=== PATIENT | male | born 1945 | race Caucasian/White ===

== ENCOUNTER 2019-11-01 13:13 | Inpatient (IN) | payer OTHER, BC ==
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
[2019-11-01] MEDS ORDERED: SODIUM CHLORIDE 0.9% 500 ML INFUS.BAG IV ONE (14:52)
[2019-11-01] MEDS ORDERED: morphine CARPU-JECT 4 MG/1 ML DISP.SYRIN IVPUSH ONE ×3 (14:52→21:42)
[2019-11-01] MEDS ORDERED: SODIUM PHOSPHATE/NA BIPHOS 133 ML ENEMA PR ONE (14:56)
[2019-11-01] MEDS ORDERED: morphine SULFATE 4 MG/ML VIAL ONE ×2 (15:26→22:17)
[2019-11-01 15:30] LABS: BASO % 0.6 % (0-2.0); EOS % 2.5 % (0-4.5); HEMATOCRIT 32.2 % (35.4-49); HEMOGLOBIN 10.5 GM/dL (11.7-16.9); LYMPH % 14.3 % (8-40); MCH 32.6 pg (25.7-33.7); MCHC 32.7 g/dl (32.0-35.9); MEAN CELL VOLUME 99.9 fl (80-96); MONO % 12.5 % (3.8-10.2); NEUT % 70.1 % (42.8-82.8); PLATELET COUNT 213 K/MM3 (134-434); RBC 3.22 M/mm3 (4.00-5.60); RDW 14.5 % (11.9-15.9); WHITE BLOOD COUNT 5.4 K/mm3 (4.0-10.0)
[2019-11-01] MEDS ORDERED: morphine CARPU-JECT 2 MG/1 ML DISP.SYRIN IVPUSH ONE (15:52)
[2019-11-01 16:01] LABS: INR 1.02 (0.83-1.09)
--- NOTE | 2019-11-01 16:06 | PDOC ---
Documentation entered by Rose Gallegos SCRIBE, acting as scribe for Gamal Gomez MD. Gamal Gomez MD: This documentation has been prepared by the Rosy savage Brenda, SCRIBE, under my direction and personally reviewed by me in its entirety. I confirm that the documentation accurately reflects all work, treatment, procedures, and medical decision making performed by me. Attending Attestation - Resident Resident Name: Ridge Felix - ED Attending Attestation I have performed the following: I have examined & evaluated the patient, The case was reviewed & discussed with the resident, I agree w/resident's findings & plan, Exceptions are as noted - HPI HPI: 11/01/19 14:44 The patient is a 74 year old male with a significant past medical history of Dementia,CABG, COPD, HTN and HLD who presents to the emergency department presenting with 4 days of constipation and abdominal swelling. The patient denies chest pain, shortness of breath, headache and dizziness. Denies fever, chills, nausea, vomiting, diarrhea. Denies any urinary symptoms. Allergies: NKA Past surgical history: Bypass (2011) Social history: Former smoker PCP: Corinna - Physicial Exam PE: 11/01/19 16:00 Patient is awake and alert, well-nourished, in moderate distress; Normocephalic and atraumatic No cervical spine tenderness, no deformity; CTA no chest wall tenderness, RRR, 2/6 abdomen is soft, distended, nontender, no organomegaly back: no deform, + mild sacral ttp; + Extensive perineal ecchymoses involving the scrotum, penis, thighs bilaterally (right greater than left;) Limited range of motion at the hips is noted due to pain; hip flexors, extensors , are intact and equal bilaterally; fine touch is intact bilaterally to the lower extremities; patient is able to plantar and dorsiflex his feet bilaterally ; patient is able to stand, however is unable to ambulate without assistance due to pain. DTRs are +2 bilaterally - Medical Decision Making 11/01/19 16:05 Patient is 74-year-old male with multiple comorbidities presents with severe pelvic and leg pain status post multiple pelvic fractures diagnosed at [facility] which not effectively controlled by home pain meds. Patient is able to stand but is unable to ambulate without significant assistance. Will obtain CT of lumbosacral spine as well as pelvis to evaluate for retroperitoneal hematoma. Will admit for pain control.
[2019-11-01 16:07] LABS: ALBUMIN 3.3 g/dl (3.4-5.0); BILIRUBIN,TOTAL 1.4 mg/dL (0.2-1); BLOOD UREA NITROGEN 21.2 mg/dL (7-18); CALCIUM 8.7 mg/dL (8.5-10.1); CREATININE 0.8 mg/dL (0.55-1.3); POTASSIUM 4.1 mmol/L (3.5-5.1); TOT PROT 6.6 g/dl (6.4-8.2)
[2019-11-01 16:45] LABS: ANISOCYTOSIS 1+; MACROCYTOSIS 1+
[2019-11-01 16:48] LABS: OVALOCYTE 1+
[2019-11-01 16:49] LABS: PLATELET ESTIMATE ADEQUATE
[2019-11-01] MEDS ORDERED: MORPHINE SULFATE 2 MG/ML VIAL ONE (18:31)
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
[2019-11-02] MEDS ORDERED: ACETAMINOPHEN 325 MG TABLET (FP) PO PRN (00:54)
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
[2019-11-02 01:26] VITALS: BMI 28.8
[2019-11-02 02:51] LABS: PH,URINE 5.5 (5.0-8.0); URINE APPEARANCE CLEAR; URINE BILIRUBIN NEGATIVE (NEGATIVE); URINE COLOR YELLOW; URINE GLUCOSE (UA) NEGATIVE (NEGATIVE); URINE KETONE 1+ (NEGATIVE); URINE LEUK ESTERASE NEGATIVE (NEGATIVE); URINE NITRITE NEGATIVE (NEGATIVE); URINE PROTEIN TRACE (NEGATIVE)
[2019-11-02] MEDS ORDERED: HEPARIN NA (PORCINE) 5,000 UNITS/ML 1ML VIAL SQ SCH (06:00)
[2019-11-02] MEDS: DOCUSATE SODIUM 100 MG CAPSULE (FP) PO SCH ×4 (06:28→21:36)
[2019-11-02] MEDS ORDERED: PATIENT'S OWN MEDICATION (NON-FORMULARY) (Clonazepam [Clonazepam] 1 MG) PO PRN (06:38)
[2019-11-02 09:25] LABS: BASO % 0.6 % (0-2.0); EOS % 1.9 % (0-4.5); HEMATOCRIT 29.3 % (35.4-49); HEMOGLOBIN 9.9 GM/dL (11.7-16.9); LYMPH % 12.1 % (8-40); MCH 33.5 pg (25.7-33.7); MCHC 33.8 g/dl (32.0-35.9); MEAN CELL VOLUME 99.1 fl (80-96); MEAN PLT VOLUME 8.3 fl (7.5-11.1); MONO % 13.9 % (3.8-10.2); NEUT % 71.5 % (42.8-82.8); PLATELET COUNT 206 K/MM3 (134-434); RBC 2.96 M/mm3 (4.00-5.60); RDW 14.2 % (11.9-15.9); RETICULOCYTES 5.66 % (0.5-1.5); WHITE BLOOD COUNT 6.3 K/mm3 (4.0-10.0)
[2019-11-02 10:00] LABS: ALBUMIN 3.3 g/dl (3.4-5.0); BILIRUBIN,TOTAL 1.5 mg/dL (0.2-1); BLOOD UREA NITROGEN 15.6 mg/dL (7-18); CALCIUM 8.6 mg/dL (8.5-10.1); CREATININE 0.7 mg/dL (0.55-1.3); MAGNESIUM 2.1 mg/dL (1.8-2.4); POTASSIUM 3.7 mmol/L (3.5-5.1); TOT PROT 6.3 g/dl (6.4-8.2)
[2019-11-02] MEDS ORDERED: FLUVOXAMINE MALEATE PO SCH (10:00)
[2019-11-02] MEDS ORDERED: ENOXAPARIN NA (PORCINE) 40 MG/0.4 ML DISP.SYRIN SQ SCH (10:00)
[2019-11-02] MEDS ORDERED: PT OWN MED DRAWER 7, Y5N ONE ×2 (10:21→21:40)
[2019-11-02 10:27] LABS: ANISOCYTOSIS 1+; MACROCYTOSIS 1+; PLATELET ESTIMATE NORMAL
[2019-11-02] MEDS: SENNOSIDES 8.6MG TABLET (FP) PO SCH ×2 (10:28→21:36)
[2019-11-02] MEDS: LOSARTAN POTASSIUM 50 MG TABLET (FP) PO SCH (10:39)
[2019-11-02] MEDS: UMECLIDINIUM/VILANTEROL (ANORO) 62.5/25 MCG INHALER IH SCH (10:39)
[2019-11-02] MEDS: oxyCODONE HCL 5 MG TABLET PO PRN ×2 (12:35→21:36)
--- NOTE | 2019-11-02 13:14 | PN ---
Progress Note (short form) - Note Progress Note: ORTHOPEDIC SURGERY PROGRESS NOTE Department of Orthopedic Surgery SUBJECTIVE No acute events overnight. No new complaints currently. Denies chest pain, shortness of breath, or calf pain. No nausea or vomiting. Tolerating oral intake. Pain control improving. PHYSICAL EXAM Constitutional: Alert and able to follow commands. No acute distress, appropriate mood and affect. No tenderness of the cervical or lumbar spine. HEENT: Normocephalic, atraumatic Right Upper Extremity: No tenderness to palpation. Full passive and active ROM, free from pain. M/R/U/MSK/AX motor intact; SILT distally; 2+ radial pulses; Cap refill brisk. Left Upper Extremity: No tenderness to palpation. Full passive and active ROM, free from pain. M/R/U/MSK/AX motor intact; SILT distally; 2+ radial pulses; Cap refill brisk. Right Lower Extremity: Skin warm, dry, and intact; no lesions, rashes or ulcers noted. Ecchymosis right buttock and groin. Ecchymosis over the dorsal aspect of the forefoot. Muscle mass equal and symmetric to contralateral side. No atrophy noted. Tender to palpation at toes and buttock; nontender throughout rest of extremity. No cords or calf tenderness. No significant calf/ankle edema. Full passive ROM, free from pain. Joints stable with no pathologic laxity. EHL/TA/GS motor intact; SILT distally; 2+ DP pulses; Cap refill brisk. Tone and reflexes normal. Left Lower Extremity: Swelling and ecchymosis left ankle. Skin warm, dry, and intact; no lesions, rashes or ulcers noted. Muscle mass equal and symmetric to contralateral side. No atrophy noted. No masses or effusions noted. Tender to palpation at left ankle; nontender throughout rest of extremity. No cords or calf tenderness No significant calf/ankle edema. Full passive and active ROM, free from pain. Joints stable with no pathologic laxity. EHL/TA/GS motor intact; SILT distally; 2+ DP pulses; Cap refill brisk. Tone and reflexes normal. Intake & Output 10/31/19 11/01/19 11/02/19 23:59 23:59 23:59 Other: Voiding Method Urinal Weight 194 lb 195 lb Height 5 ft 9 in 5 ft 9 in Body Mass Index (BMI) 28.6 28.8 Weight Measurement Method Built [facility] Active Medications Generic Name Dose Route Start Last Admin Trade Name Freq PRN Reason Stop Dose Admin Acetaminophen 650 mg 11/02/19 00:54 Tylenol - PO Q6H PRN PAIN LEVEL 1-5 Atorvastatin Calcium 20 mg 11/02/19 22:00 Lipitor - PO HS PAPI Clonazepam 1 mg 11/02/19 07:05 Klonopin - PO TID PRN ANXIETY Docusate Sodium 100 mg 11/02/19 06:00 11/02/19 12:38 Colace - PO 100 mg TID PAPI Administration Enoxaparin Sodium 40 mg 11/02/19 10:00 11/02/19 10:28 Lovenox - SQ 40 mg DAILY PAPI Administration Fluvoxamine Maleate 100 mg 11/02/19 10:00 11/02/19 10:28 Luvox - PO 100 mg BID PAPI Administration Gabapentin 400 mg 11/02/19 18:00 Neurontin - PO DAILY@1800 PAPI Losartan Potassium 50 mg 11/02/19 10:00 11/02/19 10:39 Cozaar - PO 50 mg DAILY PAPI Administration Metoprolol Succinate 50 mg 11/02/19 10:00 11/02/19 10:28 Toprol Xl - PO 50 mg DAILY PAPI Administration Oxycodone HCl 5 mg 11/01/19 22:55 11/02/19 12:35 Roxicodone - PO 5 mg Q6H PRN Administration PAIN LEVEL 6-10 Senna 1 tab 11/02/19 10:00 11/02/19 10:28 Senna - PO 1 tab BID PAPI Administration Umeclidinium/Vilanterol 1 puff 11/02/19 10:00 11/02/19 10:39 Anoro Ellipta 62.5-25 Mcg Inh IH 1 puff DAILY PAPI Administration Vital Signs (last) Temp Pulse Resp BP Pulse Ox 98.5 F 108 H 20 111/72 96 11/02/19 01:15 11/02/19 01:15 11/02/19 01:15 11/02/19 01:15 11/02/19 01:15 Laboratory (coagulation) PT with INR 12.00 SEC (9.7-13.0) 11/01/19 15:20 Laboratory 11/02/19 07:42 11/02/19 07:42 IMAGING Radiographs of the pelvis were personally reviewed. They demonstrate a right sided comminuted superior and inferior pubic ramus fracture. Radiographs of the right foot were personally reviewed. They degenerative changes with no acute fracture, dislocation, or bony lesions. Radiographs of the left ankle were personally reviewed. They show soft tissue swelling with an old fracture deformity of the fibula. There is no acute fracture, dislocation or bony lesions.Questionable proximal fifth metatarsal deformity. ASSESSMENT AND PLAN Elias Merrill is a 74 year old male presenting status post fall 6 days ago with (1) a right sided superior and inferior pubic ramus fracture, (2) left ankle sprain, (3) right forefoot sprain, and (4) subacute vs chronic lumbar vertebral compression fractures. - No surgical intervention at this time. - FU CT Pelvis and Lumbar Spine read. - Right foot, left ankle, and pelvis radiographs were reviewed and the results were discussed with the patient. - Pain control: minimize narcotic use - DVT prophylaxis - Ice/Elevation right foot and left ankle - Appreciate medical management - Decubitus precautions heel/sacrum) - PT/OT; WBAT All questions were answered. Thank you for involving our team in the care of this patient. Will continue to follow the patient with you. Please call us with any questions [phone].
[2019-11-02] MEDS: clonazePAM 0.5 MG TABLET PO PRN ×2 (13:44→21:36)
--- NOTE | 2019-11-02 17:01 | EKG ---
Test Reason : Blood Pressure : / mmHG Vent. Rate : 108 BPM Atrial Rate : 108 BPM P-R Int : 166 ms QRS Dur : 136 ms QT Int : 358 ms P-R-T Axes : 054 044 013 degrees QTc Int : 479 ms SINUS TACHYCARDIA RIGHT BUNDLE BRANCH BLOCK ABNORMAL ECG NO PREVIOUS ECGS AVAILABLE Confirmed by GEORGETTE HOOD MD ([id number]) on 11/02/2019 5:01:37 PM Referred By: Confirmed By:GEORGETTE HOOD MD
[2019-11-02] MEDS: GABAPENTIN 400 MG CAPSULE (FP) PO SCH (18:16)
--- NOTE | 2019-11-02 20:10 | PN ---
Progress Note (short form) - Note Progress Note: SUBJECTIVE: Complains of discolored scrotum. Wants to go home. OBJECTIVE: Afebrile, Hemodynamically Stable. Last Vital Signs Temp Pulse Resp BP Pulse Ox 97.8 F 110 H 22 H 118/64 96 11/02/19 15:54 11/02/19 15:54 11/02/19 15:54 11/02/19 15:54 11/02/19 01:15 HEENT - Atraumatic, normocpehalic. Heart - S1, S2, RRR Lungs - clear to auscultation Abdomen - soft, non-tender. Bowel Sounds normal. - suprapubic ecchymosis, scrotal echymosis, tender + MS - tender over lumbar spine Extremities - edema, LE varicosities. No calf tenderness. Neuro - Tone/Power normal all extremities. Laboratory Results - last 24 hr 11/01/19 11/02/19 11/02/19 07:42 02:30 07:42 WBC 6.3 RBC 2.96 L Hgb 9.9 L Hct 29.3 L MCV 99.1 H MCH 33.5 MCHC 33.8 RDW 14.2 Plt Count 206 MPV 8.3 Absolute Neuts (auto) 4.5 Neutrophils % 71.5 Neutrophils % (Manual) 74.7 Band Neutrophils % 1.0 Lymphocytes % 12.1 Lymphocytes % (Manual) 9.7 D Monocytes % 13.9 H Monocytes % (Manual) 6 Eosinophils % 1.9 Eosinophils % (Manual) 2.9 Basophils % 0.6 Basophils % (Manual) 1.0 Myelocytes % (Man) 4 H D Promyelocytes % (Man) 0 Blast Cells % (Manual) 0 Nucleated RBC % 0 Metamyelocytes 0 D Hypochromia 0 Platelet Estimate Normal Platelet Comment Present Polychromasia 1+ Poikilocytosis 0 Anisocytosis 1+ Microcytosis 1+ Macrocytosis 1+ Retic Count 5.66 H Sodium Potassium Chloride Carbon Dioxide Anion Gap BUN Creatinine Est GFR (CKD-EPI)AfAm Est GFR (CKD-EPI)NonAf POC Glucometer Random Glucose Calcium Magnesium Iron TIBC Iron Saturation Unsaturated IBC Ferritin Total Bilirubin AST ALT Alkaline Phosphatase Total Protein Albumin Vitamin B12 Serum Folate Urine Color Yellow Urine Appearance Clear Urine pH 5.5 Ur Specific [place] 1.019 Urine Protein Trace Urine Glucose (UA) Negative Urine Ketones 1+ H Urine Blood Negative Urine Nitrite Negative Urine Bilirubin Negative Urine Urobilinogen 1.0 Ur Leukocyte Esterase Negative Blood Type O POSITIVE 11/02/19 11/02/19 11/02/19 07:42 07:42 17:25 WBC RBC Hgb Hct MCV MCH MCHC RDW Plt Count MPV Absolute Neuts (auto) Neutrophils % Neutrophils % (Manual) Band Neutrophils % Lymphocytes % Lymphocytes % (Manual) Monocytes % Monocytes % (Manual) Eosinophils % Eosinophils % (Manual) Basophils % Basophils % (Manual) Myelocytes % (Man) Promyelocytes % (Man) Blast Cells % (Manual) Nucleated RBC % Metamyelocytes Hypochromia Platelet Estimate Platelet Comment Polychromasia Poikilocytosis Anisocytosis Microcytosis Macrocytosis Retic Count Sodium 138 Potassium 3.7 Chloride 106 Carbon Dioxide 23 Anion Gap 9 BUN 15.6 Creatinine 0.7 Est GFR (CKD-EPI)AfAm 106.24 Est GFR (CKD-EPI)NonAf 91.67 POC Glucometer 124 Random Glucose 100 Calcium 8.6 Magnesium 2.1 Iron 50 TIBC 350 Iron Saturation 14 L Unsaturated IBC 300 H Ferritin 144.7 Total Bilirubin 1.5 H AST 25 ALT 20 Alkaline Phosphatase 72 Total Protein 6.3 L Albumin 3.3 L Vitamin B12 405 Serum Folate 40 H Urine Color Urine Appearance Urine pH Ur Specific [place] Urine Protein Urine Glucose (UA) Urine Ketones Urine Blood Urine Nitrite Urine Bilirubin Urine Urobilinogen Ur Leukocyte Esterase Blood Type Current Medications Generic Name Dose Route Start Last Admin Trade Name Freq PRN Reason Stop Dose Admin Acetaminophen 650 mg 11/02/19 00:54 Tylenol - PO Q6H PRN PAIN LEVEL 1-5 Atorvastatin Calcium 20 mg 11/02/19 22:00 Lipitor - PO HS PAPI Clonazepam 1 mg 11/02/19 07:05 11/02/19 13:44 Klonopin - PO 1 mg TID PRN Administration ANXIETY Docusate Sodium 100 mg 11/02/19 06:00 11/02/19 14:00 Colace - PO 100 mg TID PAPI Administration Fluvoxamine Maleate 100 mg 11/02/19 10:00 11/02/19 10:28 Luvox - PO 100 mg BID PAPI Administration Gabapentin 400 mg 11/02/19 18:00 11/02/19 18:16 Neurontin - PO 400 mg DAILY@1800 PAPI Administration Losartan Potassium 50 mg 11/02/19 10:00 11/02/19 10:39 Cozaar - PO 50 mg DAILY PAPI Administration Metoprolol Succinate 50 mg 11/02/19 10:00 11/02/19 10:28 Toprol Xl - PO 50 mg DAILY PAPI Administration Oxycodone HCl 5 mg 11/01/19 22:55 11/02/19 12:35 Roxicodone - PO 5 mg Q6H PRN Administration PAIN LEVEL 6-10 Senna 1 tab 11/02/19 10:00 11/02/19 10:28 Senna - PO 1 tab BID PAPI Administration Umeclidinium/Vilanterol 1 puff 11/02/19 10:00 11/02/19 10:39 Anoro Ellipta 62.5-25 Mcg Inh IH 1 puff DAILY PAPI Administration Home Medications Medication Instructions Recorded Fluvoxamine Maleate [Luvox -] 100 mg PO BID 01/02/13 Metoprolol Succinate [Toprol XL -] 50 mg PO DAILY 01/02/13 Losartan Potassium [Cozaar -] 50 mg PO DAILY #0 01/06/13 Atorvastatin Ca [Lipitor] 20 mg PO HS 11/01/19 Clonazepam 1 mg PO TID PRN 11/01/19 Gabapentin 400 mg PO DAILY 11/01/19 Umeclidinium Brm/Vilanterol Tr 1 each IH DAILY 11/01/19 [Anoro Ellipta 62.5-25 Mcg INH] ASSESSMENT/PLAN 74 year old male with a past medical history of CAD s/p IN (s/p CABG 7 years prior), HTN, HLD, COPD, presents with Right hip pain s/p fall [address] Lumbar Spine/Pelvis - comminuted fracture of the R superior/inferior pubic ramus, sugg L1-L2 compression fx, enlarged prostate gland, scoliosis, infrarenal AAA, nonobstructing left renal calculi, nonspecific bladder wall thickening, L adrenal nodule suggestive of adenoma. LE U/S negative for DVT 1. Pubic Rami Fracture sec to Fall, Acute L1/L2 compression fractures, Transverse Process fracture L3, L4 Large associated Hematoma 4cm Ortho recommendations appreciated. Oxycodone PRN for pain PT 2. Scrotal Pain/discoloration/ecchymoses, likely sec to Fall/Pelvic Fracture Scrotal US requested Urology consulted. 3. LE edema, etiology unclear Echo requested. CXR - pending. 4. Constipation - started on Senna and Colace. Will give MOM PRN. 5. COPD - Stable. Continue Anoro. 6. HTN - Continue Losartan, Toprol. 7. HLD - Continue Lipitor. 8. L Adrenal Nodule - for outpatient Endocrinology/Urology follow up 9. Enlarged Prostate, Bladder wall thickening, Renal Calculus - Urology consulted. 10. Infrarenal AAA 4.4cm - Vascular Sx follow up as out-patient. 11. R foot ankle/foot sprain - Ice, Rest, Elevation DVT Px - Lovenox SQ stopped due to Pelvic Hematoma/Genital bruising. Visit type - Emergency Visit Emergency Visit: Yes ED Registration Date: 11/01/19 Care time: The patient presented to the Emergency Department on the above date and was hospitalized for further evaluation of their emergent condition. - New Patient This patient is new to me today: Yes Date on this admission: 11/02/19 - Critical Care Critical Care patient: No - Discharge Referral Referred to [facility] Med P.C.: No
[2019-11-02] MEDS: ATORVASTATIN CA 20 MG TABLET (FP) PO SCH (21:36)
[2019-11-03] MEDS: DOCUSATE SODIUM 100 MG CAPSULE (FP) PO SCH ×3 (05:51→21:31)
[2019-11-03] MEDS: oxyCODONE HCL 5 MG TABLET PO PRN ×2 (07:45→15:15)
[2019-11-03] MEDS: clonazePAM 0.5 MG TABLET PO PRN ×2 (07:46→16:42)
[2019-11-03 08:19] LABS: BASO % 0.7 % (0-2.0); HEMATOCRIT 28.7 % (35.4-49); HEMOGLOBIN 9.7 GM/dL (11.7-16.9); LYMPH % 10.1 % (8-40); MCH 33.3 pg (25.7-33.7); MCHC 33.6 g/dl (32.0-35.9); MONO % 13.8 % (3.8-10.2); NEUT % 73.4 % (42.8-82.8); PLATELET COUNT 220 K/MM3 (134-434); RDW 14.6 % (11.9-15.9); WHITE BLOOD COUNT 5.6 K/mm3 (4.0-10.0)
[2019-11-03] MEDS ORDERED: MAGNESIUM HYDROX 2400MG/30ML ORAL SUSPENSION 30 ML CUP PO PRN (08:32)
[2019-11-03 09:37] LABS: BILIRUBIN,DIRECT 0.4 mg/dL (0.0-0.2)
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
[2019-11-03 10:20] LABS: ANISOCYTOSIS 0; MACROCYTOSIS 0; PLATELET ESTIMATE NORMAL
[2019-11-03] MEDS: SENNOSIDES 8.6MG TABLET (FP) PO SCH ×2 (10:49→21:31)
[2019-11-03] MEDS: LOSARTAN POTASSIUM 50 MG TABLET (FP) PO SCH (10:50)
[2019-11-03] MEDS: UMECLIDINIUM/VILANTEROL (ANORO) 62.5/25 MCG INHALER IH SCH (10:51)
--- NOTE | 2019-11-03 11:19 | PN ---
Progress Note (short form) - Note Progress Note: ORTHOPEDIC SURGERY PROGRESS NOTE Department of Orthopedic Surgery SUBJECTIVE No acute events overnight. No new complaints currently. Denies chest pain, shortness of breath, or calf pain. No nausea or vomiting. Tolerating oral intake. Pain control improving. PHYSICAL EXAM Constitutional: Alert and able to follow commands. No acute distress, appropriate mood and affect. No tenderness of the cervical or lumbar spine. HEENT: Normocephalic, atraumatic Right Upper Extremity: No tenderness to palpation. Full passive and active ROM, free from pain. M/R/U/MSK/AX motor intact; SILT distally; 2+ radial pulses; Cap refill brisk. Left Upper Extremity: No tenderness to palpation. Full passive and active ROM, free from pain. M/R/U/MSK/AX motor intact; SILT distally; 2+ radial pulses; Cap refill brisk. Right Lower Extremity: Skin warm, dry, and intact; no lesions, rashes or ulcers noted. Ecchymosis right buttock and groin. Ecchymosis over the dorsal aspect of the forefoot. Muscle mass equal and symmetric to contralateral side. No atrophy noted. Tender to palpation at toes and buttock; nontender throughout rest of extremity. No cords or calf tenderness. No significant calf/ankle edema. Full passive ROM, free from pain. Joints stable with no pathologic laxity. EHL/TA/GS motor intact; SILT distally; 2+ DP pulses; Cap refill brisk. Tone and reflexes normal. Left Lower Extremity: Swelling and ecchymosis left ankle. Skin warm, dry, and intact; no lesions, rashes or ulcers noted. Muscle mass equal and symmetric to contralateral side. No atrophy noted. No masses or effusions noted. Tender to palpation at left ankle; nontender throughout rest of extremity. No cords or calf tenderness No significant calf/ankle edema. Full passive and active ROM, free from pain. Joints stable with no pathologic laxity. EHL/TA/GS motor intact; SILT distally; 2+ DP pulses; Cap refill brisk. Tone and reflexes normal. Intake & Output 11/01/19 11/02/19 11/03/19 23:59 23:59 23:59 Intake Total 600 250 Output Total 300 Balance 600 -50 Intake: Oral 600 250 Output: Urine 300 Void 300 Other: Voiding Method Bedside Commode Bedside Commode Bowel Movement No Weight 194 lb 195 lb Height 5 ft 9 in 5 ft 9 in Body Mass Index (BMI) 28.6 28.8 Weight Measurement Method Built in [facility] Active Medications Generic Name Dose Route Start Last Admin Trade Name Freq PRN Reason Stop Dose Admin Acetaminophen 650 mg 11/02/19 00:54 Tylenol - PO Q6H PRN PAIN LEVEL 1-5 Atorvastatin Calcium 20 mg 11/02/19 22:00 11/02/19 21:36 Lipitor - PO 20 mg HS PAPI Administration Clonazepam 1 mg 11/02/19 07:05 11/03/19 07:46 Klonopin - PO 1 mg TID PRN Administration ANXIETY Docusate Sodium 100 mg 11/02/19 06:00 11/03/19 05:51 Colace - PO 100 mg TID PAPI Administration Fluvoxamine Maleate 100 mg 11/02/19 10:00 11/03/19 10:50 Luvox - PO 100 mg BID PAPI Administration Gabapentin 400 mg 11/02/19 18:00 11/02/19 18:16 Neurontin - PO 400 mg DAILY@1800 PPAI Administration Losartan Potassium 50 mg 11/02/19 10:00 11/03/19 10:50 Cozaar - PO 50 mg DAILY PAPI Administration Magnesium Hydroxide 30 ml 11/03/19 08:32 Milk Of Magnesia - PO DAILY PRN CONSTIPATION Metoprolol Succinate 50 mg 11/02/19 10:00 11/03/19 10:50 Toprol Xl - PO 50 mg DAILY PAPI Administration Oxycodone HCl 5 mg 11/01/19 22:55 11/03/19 07:45 Roxicodone - PO 5 mg Q6H PRN Administration PAIN LEVEL 6-10 Senna 1 tab 11/02/19 10:00 11/03/19 10:49 Senna - PO 1 tab BID PAPI Administration Umeclidinium/Vilanterol 1 puff 11/02/19 10:00 11/03/19 10:51 Anoro Ellipta 62.5-25 Mcg Inh IH 1 puff DAILY PAPI Administration Vital Signs (last) Temp Pulse Resp BP Pulse Ox 98.0 F 80 17 135/71 96 11/03/19 10:20 11/03/19 10:20 11/03/19 10:20 11/03/19 10:20 11/02/19 21:00 Laboratory (coagulation) PT with INR 12.00 SEC (9.7-13.0) 11/01/19 15:20 Laboratory 11/03/19 06:37 11/02/19 07:[address] scan of the pelvis and lumbasr spine were reviewed. They demonstrate a right sided comminuted superior and inferior pubic ramus fracture, acute L1 and L2 vertebral compression fractures, and anondisplaced fractures of the right transverse process of L3 and L4. ASSESSMENT AND PLAN Elias Merrill is a 74 year old male with (1) a right sided superior and inferior pubic ramus fracture, (2) left ankle sprain, (3) right forefoot sprain , and (4) acute L1 and L2 vertebral compression fractures, and L4 and L5 nondisplaced transverse process fractures. He is hemodynamicaly stable and neurologically intact. - No surgical intervention for pelvis/sacral fractures - Monitor H/H - TLSO - Pain control: minimize narcotic use - DVT prophylaxis - Ice/Elevation right foot and left ankle - Appreciate medical management - Decubitus precautions heel/sacrum) - PT/OT; WBAT All questions were answered. Thank you for involving our team in the care of this patient. Will continue to follow the patient with you. Please call us with any questions [phone].
--- NOTE | 2019-11-03 11:36 | ECHO ---
Name: HOWIE MELENDEZ Exam:Adult Echocardiogram Study Date: 11/03/2019 09:44 AM Age: 74 yrs Height: 69 in Weight: 194 lb BSA: 2.0 m2 MMode/2D Measurements & Calculations IVSd: 1.2 cm Ao root diam: 3.8 cm LVIDd: 6.0 cm LA dimension: 4.7 cm LVIDs: 4.6 cm ACS: 1.9 cm LVPWd: 1.3 cm EDV(Teich): 179.5 ml LVOT diam: 1.9 cm ESV(Teich): 98.5 ml Doppler Measurements & Calculations MV E max radha: 79.0 cm/sec MR max radha: 421.3 cm/sec MV A max radha: 45.9 cm/sec MR max P.0 mmHg MV E/A: 1.7 MV dec time: 0.20 sec TR max radha: 208.2 cm/sec PA V2 max: 52.3 cm/sec TR max P.1 mmHg PA max P.1 mmHg Procedure A complete two-dimensional transthoracic echocardiogram was performed (2D, M-mode, Doppler and color flow Doppler). Technically limited study. Left Ventricle The left ventricle is normal in size. Regional wall motion could not be accurately assessed due to po or acoustic window. Right Ventricle The right ventricle is not well visualized. Atria The left atrial size is normal. Right atrial size is normal. Mitral Valve The mitral valve is normal in structure and function. There is no mitral regurgitation noted. Tricuspid Valve The tricuspid valve is normal in structure and function. There is mild tricuspid regurgitation. Right ventricular systolic pressure is normal. Aortic Valve There is mild aortic sclerosis.;. No aortic regurgitation is present. Pulmonic Valve The pulmonic valve is not well visualized. Great Vessels Borderline aortic root dilatation. Pericardium/Pleura There is no pericardial effusion. Interpretation Summary Technically limited study The left ventricle is normal in size. Regional wall motion could not be accurately assessed due to poor acoustic window The right ventricle is not well visualized. The left atrial size is normal. Right atrial size is normal. There is mild tricuspid regurgitation. Right ventricular systolic pressure is normal. There is mild aortic sclerosis. Borderline aortic root dilatation. There is no pericardial effusion. Sander Freed MD 11/03/2019 11:35 AM
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
--- NOTE | 2019-11-03 14:34 | PN ---
Teaching Attending Note Name of Resident: Hilton Rios ATTENDING PHYSICIAN STATEMENT I saw and evaluated the patient. I reviewed the resident's note and discussed the case with the resident. I agree with the resident's findings and plan as documented. SUBJECTIVE: No complaints. Being obstructive, obstinate, and generally cantankerous OBJECTIVE: Afebrile, Hemodynamically Stable. Last Vital Signs Temp Pulse Resp BP Pulse Ox 98.0 F 80 17 135/71 96 11/03/19 10:20 11/03/19 10:20 11/03/19 10:20 11/03/19 10:11/02/19 21:00 Heart - S1, S2, RRR Lungs - clear to auscultation Abdomen - soft, non-tender. Bowel Sounds normal. - suprapubic ecchymosis, scrotal ecchymosis, tender + MS - tender over lumbar spine Extremities - edema, LE varicosities. No calf tenderness. Neuro - Tone/Power normal all extremities. Laboratory Results - last 24 hr 11/01/19 11/02/19 11/03/19 15:20 17:25 06:37 WBC 5.6 RBC 2.90 L Hgb 9.7 L Hct 28.7 L MCV 99.0 H MCH 33.3 MCHC 33.6 RDW 14.6 Plt Count 220 MPV 8.0 Absolute Neuts (auto) 4.1 Neutrophils % 73.4 Neutrophils % (Manual) 81.0 Band Neutrophils % 0.0 Lymphocytes % 10.1 Lymphocytes % (Manual) 4.0 L D Monocytes % 13.8 H Monocytes % (Manual) 8 Eosinophils % 2.0 Eosinophils % (Manual) 3.0 Basophils % 0.7 Basophils % (Manual) 1.0 Myelocytes % (Man) 2 D Promyelocytes % (Man) 0 Blast Cells % (Manual) 0 Nucleated RBC % 0 Metamyelocytes 1 D Hypochromia 0 Platelet Estimate Normal Platelet Comment Present Polychromasia 2+ Poikilocytosis 0 Basophilic Stippling 0 Anisocytosis 0 Microcytosis 0 Macrocytosis 0 Sodium 140 Potassium 4.1 Chloride 103 Carbon Dioxide 27 Anion Gap 10 BUN 21.2 H Creatinine 0.8 Est GFR (CKD-EPI)AfAm 100.57 Est GFR (CKD-EPI)NonAf 86.77 POC Glucometer 124 Random Glucose 92 Calcium 8.7 Total Bilirubin 1.4 H Direct Bilirubin 0.4 H AST 27 ALT 22 Alkaline Phosphatase 81 Total Protein 6.6 Albumin 3.3 L Current Medications Generic Name Dose Route Start Last Admin Trade Name Freq PRN Reason Stop Dose Admin Acetaminophen 650 mg 11/02/19 00:54 Tylenol - PO Q6H PRN PAIN LEVEL 1-5 Atorvastatin Calcium 20 mg 11/02/19 22:00 11/02/19 21:36 Lipitor - PO 20 mg HS PAPI Administration Clonazepam 1 mg 11/02/19 07:05 11/03/19 07:46 Klonopin - PO 1 mg TID PRN Administration ANXIETY Docusate Sodium 100 mg 11/02/19 06:00 11/03/19 13:35 Colace - PO 100 mg TID PAPI Administration Fluvoxamine Maleate 100 mg 11/02/19 10:00 11/03/19 10:50 Luvox - PO 100 mg BID PAPI Administration Gabapentin 400 mg 11/02/19 18:00 11/02/19 18:16 Neurontin - PO 400 mg DAILY@1800 PAPI Administration Losartan Potassium 50 mg 11/02/19 10:00 11/03/19 10:50 Cozaar - PO 50 mg DAILY PAPI Administration Magnesium Hydroxide 30 ml 11/03/19 08:32 Milk Of Magnesia - PO DAILY PRN CONSTIPATION Metoprolol Succinate 50 mg 11/02/19 10:00 11/03/19 10:50 Toprol Xl - PO 50 mg DAILY PAPI Administration Oxycodone HCl 5 mg 11/01/19 22:55 11/03/19 07:45 Roxicodone - PO 5 mg Q6H PRN Administration PAIN LEVEL 6-10 Senna 1 tab 11/02/19 10:00 11/03/19 10:49 Senna - PO 1 tab BID PAPI Administration Umeclidinium/Vilanterol 1 puff 11/02/19 10:00 11/03/19 10:51 Anoro Ellipta 62.5-25 Mcg Inh IH 1 puff DAILY PAPI Administration Home Medications Medication Instructions Recorded Fluvoxamine Maleate [Luvox -] 100 mg PO BID 01/02/13 Metoprolol Succinate [Toprol XL -] 50 mg PO DAILY 01/02/13 Losartan Potassium [Cozaar -] 50 mg PO DAILY #0 01/06/13 Atorvastatin Ca [Lipitor] 20 mg PO HS 11/01/19 Clonazepam 1 mg PO TID PRN 11/01/19 Gabapentin 400 mg PO DAILY 11/01/19 Umeclidinium Brm/Vilanterol Tr 1 each IH DAILY 11/01/19 [Anoro Ellipta 62.5-25 Mcg INH] ASSESSMENT/PLAN 74 year old male with a past medical history of CAD s/p [place] (s/p CABG 7 years prior), HTN, HLD, COPD, presents with Right hip pain s/p fall [address] Lumbar Spine/Pelvis - comminuted fracture of the R superior/inferior pubic ramus, sugg L1-L2 compression fx, enlarged prostate gland, scoliosis, infrarenal AAA, nonobstructing left renal calculi, nonspecific bladder wall thickening, L adrenal nodule suggestive of adenoma. LE U/S negative for DVT 1. Pubic Rami Fracture sec to Fall, Acute L1/L2 compression fractures, Transverse Process fracture L3, L4 Large associated Hematoma 4cm Ortho recommendations appreciated. Oxycodone PRN for pain PT - unable to ambulate due to pain, took 2 steps. Refusing SNF. Wants to leave AMA. Attempting to contact family and mediate a reasonable discharge plan. Psychiatry consulted for medical decision making capacity. 2. Scrotal Pain/discoloration/ecchymoses, likely sec to Fall/Pelvic Fracture Scrotal US negative for testicular pathology. Urology consult appreciated. 3. LE edema, likely chronic venous stasis Echo - normal. 4. Constipation - started on Senna and Colace. MOM PRN. 5. COPD - Stable. Continue Anoro Ellipta 6. HTN - Continue Losartan, Toprol. 7. HLD - Continue Lipitor. 8. L Adrenal Nodule - for outpatient Endocrinology/Urology follow up 9. Enlarged Prostate, Bladder wall thickening, Renal Calculus - Urology consulted. Renal/Bladder US requested by Urology. 10. Infrarenal AAA 4.4cm - Vascular Sx consulted. 11. R foot ankle/foot sprain - Ice, Rest, Elevation. Eval by Ortho - for follow up. 12. Hx of Alcohol Excess - displaying signs of agitation. No overt withdrawal symptoms. No hallucinations. Addiction Medicine consulted. MVI, Thiamine, Folate 13. Unclear Psych history - on Fluvoxamine and Clonazepam, will continue. Psych eval requested. DVT Px - Lovenox SQ stopped due to Pelvic Hematoma/Genital bruising.
[2019-11-03] MEDS: MULTIVITAMINS (DAILY MVI) TABLET (FP) PO SCH (15:15)
[2019-11-03] MEDS: FOLIC ACID 1 MG TABLET (FP) PO SCH (15:15)
[2019-11-03] MEDS: THIAMINE HCL 100 MG TABLET (FP) PO SCH (15:15)
--- NOTE | 2019-11-03 16:10 | PN ---
Physical Exam: SUBJECTIVE: Patient seen and examined at the bedside. Patient was adamant about leaving and going home. Patient refusing to answer any further questions. OBJECTIVE: Vital Signs Period Temp Pulse Resp BP Sys/Nichols Pulse Ox Last 24 Hr 97.8 F-98.4 F 80-86 17-22 108-135/65-71 96-96 GENERAL: Awake, alert, and oriented to self and location. Very hostile towards examiner. EYES: Extraocular movements intact. EARS, NOSE, THROAT: Moist mucous membranes. LUNGS: Breath sounds equal, and diminished. No wheezes and no crackles. No accessory muscle use. HEART: Regular rate and rhythm, normal S1 and S2 without murmur, rub. ABDOMEN: Soft, nontender, not distended, normoactive bowel sounds, no guarding, no rebound, no masses. MUSCULOSKELETAL: Decreased range of motion secondary to pain in the lower extremities. LOWER EXTREMITIES: 2+ pulses, warm, well-perfused. No calf tenderness. Swelling of the left ankle. NEUROLOGICAL: Cranial nerves II-XII intact. 5/5 muscle strength bilaterally upper extremities. 4/5 bilaterally lower extremities. PSYCHIATRIC: Uncooperative and hostile. SKIN: Noted swelling and ecchymoses on the left and right ankles. Laboratory Results - last 24 hr 11/01/19 11/02/19 11/03/19 15:20 17:25 06:37 WBC 5.6 RBC 2.90 L Hgb 9.7 L Hct 28.7 L MCV 99.0 H MCH 33.3 MCHC 33.6 RDW 14.6 Plt Count 220 MPV 8.0 Absolute Neuts (auto) 4.1 Neutrophils % 73.4 Neutrophils % (Manual) 81.0 Band Neutrophils % 0.0 Lymphocytes % 10.1 Lymphocytes % (Manual) 4.0 L D Monocytes % 13.8 H Monocytes % (Manual) 8 Eosinophils % 2.0 Eosinophils % (Manual) 3.0 Basophils % 0.7 Basophils % (Manual) 1.0 Myelocytes % (Man) 2 D Promyelocytes % (Man) 0 Blast Cells % (Manual) 0 Nucleated RBC % 0 Metamyelocytes 1 D Hypochromia 0 Platelet Estimate Normal Platelet Comment Present Polychromasia 2+ Poikilocytosis 0 Basophilic Stippling 0 Anisocytosis 0 Microcytosis 0 Macrocytosis 0 Sodium 140 Potassium 4.1 Chloride 103 Carbon Dioxide 27 Anion Gap 10 BUN 21.2 H Creatinine 0.8 Est GFR (CKD-EPI)AfAm 100.57 Est GFR (CKD-EPI)NonAf 86.77 POC Glucometer 124 Random Glucose 92 Calcium 8.7 Total Bilirubin 1.4 H Direct Bilirubin 0.4 H AST 27 ALT 22 Alkaline Phosphatase 81 Total Protein 6.6 Albumin 3.3 L Active Medications Generic Name Dose Route Start Last Admin Trade Name Freq PRN Reason Stop Dose Admin Acetaminophen 650 mg 11/02/19 00:54 Tylenol - PO Q6H PRN PAIN LEVEL 1-5 Atorvastatin Calcium 20 mg 11/02/19 22:00 11/02/19 21:36 Lipitor - PO 20 mg HS PAPI Administration Clonazepam 1 mg 11/02/19 07:05 11/03/19 07:46 Klonopin - PO 1 mg TID PRN Administration ANXIETY Docusate Sodium 100 mg 11/02/19 06:00 11/03/19 13:35 Colace - PO 100 mg TID PAPI Administration Fluvoxamine Maleate 100 mg 11/02/19 10:00 11/03/19 10:50 Luvox - PO 100 mg BID PAPI Administration Folic Acid 1 mg 11/03/19 15:15 11/03/19 15:15 Folic Acid - PO 1 mg DAILY PAPI Administration Gabapentin 400 mg 11/02/19 18:00 11/02/19 18:16 Neurontin - PO 400 mg DAILY@1800 PAPI Administration Losartan Potassium 50 mg 11/02/19 10:00 11/03/19 10:50 Cozaar - PO 50 mg DAILY PAPI Administration Magnesium Hydroxide 30 ml 11/03/19 08:32 Milk Of Magnesia - PO DAILY PRN CONSTIPATION Metoprolol Succinate 50 mg 11/02/19 10:00 11/03/19 10:50 Toprol Xl - PO 50 mg DAILY PAPI Administration Multivitamins/Minerals/Vitamin C 1 tab 11/03/19 15:15 11/03/19 15:15 Tab-A-Vit - PO 1 tab DAILY PAPI Administration Oxycodone HCl 5 mg 11/01/19 22:55 11/03/19 15:15 Roxicodone - PO 5 mg Q6H PRN Administration PAIN LEVEL 6-10 Senna 1 tab 11/02/19 10:00 11/03/19 10:49 Senna - PO 1 tab BID PAPI Administration Thiamine HCl 100 mg 11/03/19 15:15 11/03/19 15:15 Vitamin B1 - PO 100 mg DAILY PAPI Administration Umeclidinium/Vilanterol 1 puff 11/02/19 10:00 11/03/19 10:51 Anoro Ellipta 62.5-25 Mcg Inh IH 1 puff DAILY PAPI Administration ASSESSMENT/PLAN: Elias Merrill is a 74 year old male with a past medical history of [place] (s/p CABG 7 years prior), HTN, HLD, COPD admitted for pubic fractures. Pubic Rami Fracture - noted hematoma on CT scan - Ortho consulted, recs appreciated - oxycodone 5mg q6h prn and tylenol prn for pain - continue home gabapentin - physical therapy noting that patient unable to walk well and will benefit from subacute rehab - foot and ankle x-ray with no acute fracture - ice and elevation of limbs - UA negative Compression fractures of L1/L2 and transverse fracture of L3/L4 - neurosurgery consulted, recs appreciated - TLSO brace - will require 2 weeks interval x-rays - will need outpatient neurosurgery follow up Edema - likely cardiac in nature and dependent edema contributory from fracture - echo limited, noting normal LV size, mild tricuspid regurg, borderline aortic root dilation - CXR with no acute pathology Scrotal Edema - scrotal U/S negative for pathology - urology consulted - scrotal elevation and ice packs as per urology - pelvic and renal U/S, results pending Constipation - fleet enema given - started on senna and colace Anemia - attempt to get records for [facility] and [facility] to assess if anemia is worsening since those admissions - iron studies - continue to monitor COPD - continue home Anoro HTN - continue home losartan, toprol HLD - continue home Lipitor CT scan noting enlarged prostate gland, nonobstructing calculus, L adrenal nodule - will require outpatient urology follow up - will require endocrinology follow up Infrarenal AAA - obtain abd U/S - will likely need outpatient vascular follow up ?Psychiatric Diagnosis - hx of alcohol abuse - on Luvox and clonazepam - as per son, patient overuses his clonazepam - will need records to find out psychiatric diagnosis - addiction medicine consulted DVT PPx - Lovenox 40 units subq daily FEN - no standing fluids, encourage PO intake - continue to monitor electrolyte and replete as necessary - sodium/fat controlled diet Dispo - continue to monitor on Med-surg - family to speak with social work to negotiate a reasonable and safe discharge plan Problem List - Problems (1) Constipation Code(s): K59.00 - CONSTIPATION, UNSPECIFIED Qualifiers: Constipation type: unspecified constipation type Qualified Code(s): K59.00 - Constipation, unspecified (2) Pelvic fracture Code(s): S32.9XXA - FRACTURE OF UNSP PARTS OF LUMBOSACRAL SPINE AND PELVIS, INIT Qualifiers: Encounter type: subsequent encounter Pelvic bone location: unspecified part of pelvis Fracture type: closed Fracture alignment: nondisplaced Fracture healing: with routine healing Qualified Code(s): S32.9XXD - Fracture of unspecified parts of lumbosacral spine and pelvis, subsequent encounter for fracture with routine healing Visit type - Emergency Visit Emergency Visit: Yes ED Registration Date: 11/01/19 Care time: The patient presented to the Emergency Department on the above date and was hospitalized for further evaluation of their emergent condition. - New Patient This patient is new to me today: No - Critical Care Critical Care patient: No
[2019-11-03] MEDS: GABAPENTIN 400 MG CAPSULE (FP) PO SCH (17:23)
--- NOTE | 2019-11-03 18:30 | CON.PSY ---
Psychiatry Consult Chief Complaint: 74 Waldem[place] old Male with a history of DEpression, alcohol and Bemzo abuse seen for Psych eval. Patient apparantly trfusing to go to Rehab for Fracture Pelvis. - Previous Psychiatric Treatment Outpatient: Less than 6 mos ago Inpatient: None - Previous Substance Abuse Treatment Outpatient: More than 6 mos ago - Reason for Previous Treatment Reason for Previous Treatment: Major Depression, Alcohol Abuse, Prescription Drug - Current Medications Current Medications: Active Medications Acetaminophen (Tylenol -) 650 mg PO Q6H PRN PRN Reason: PAIN LEVEL 1-5 Atorvastatin Calcium (Lipitor -) 20 mg PO HS [facility] Last Admin: 11/02/19 21:36 Dose: 20 mg Clonazepam (Klonopin -) 1 mg PO TID PRN PRN Reason: ANXIETY Last Admin: 11/03/19 16:42 Dose: 1 mg Docusate Sodium (Colace -) 100 mg PO TID [facility] Last Admin: 11/03/19 13:35 Dose: 100 mg Fluvoxamine Maleate (Luvox -) 100 mg PO BID [facility] Last Admin: 11/03/19 10:50 Dose: 100 mg Folic Acid (Folic Acid -) 1 mg PO DAILY [facility] Last Admin: 11/03/19 15:15 Dose: 1 mg Gabapentin (Neurontin -) 400 mg PO DAILY@1800 [facility] Last Admin: 11/03/19 17:23 Dose: 400 mg Losartan Potassium (Cozaar -) 50 mg PO DAILY [facility] Last Admin: 11/03/19 10:50 Dose: 50 mg Magnesium Hydroxide (Milk Of Magnesia -) 30 ml PO DAILY PRN PRN Reason: CONSTIPATION Metoprolol Succinate (Toprol Xl -) 50 mg PO DAILY [facility] Last Admin: 11/03/19 10:50 Dose: 50 mg Multivitamins/Minerals/Vitamin C (Tab-A-Vit -) 1 tab PO DAILY [facility] Last Admin: 11/03/19 15:15 Dose: 1 tab Oxycodone HCl (Roxicodone -) 5 mg PO Q6H PRN PRN Reason: PAIN LEVEL 6-10 Last Admin: 11/03/19 15:15 Dose: 5 mg Senna (Senna -) 1 tab PO BID [facility] Last Admin: 11/03/19 10:49 Dose: 1 tab Thiamine HCl (Vitamin B1 -) 100 mg PO DAILY [facility] Last Admin: 11/03/19 15:15 Dose: 100 mg Umeclidinium/Vilanterol (Anoro Ellipta 62.5-25 Mcg Inh) 1 puff IH DAILY [facility] Last Admin: 11/03/19 10:51 Dose: 1 puff - Allergies Allergies: Allergies Allergy/AdvReac Type Severity Reaction Status Date / Time No Known Allergies Allergy Verified 11/01/19 14:45 - Current Living Status Usual Living Arrangement: With Significant Other - Current Mental Status Evaluation Appearance: Well Groomed Attitude: Cooperative - Affect Affect: Constrictive Appropriateness: Appropriate to Content - Mood Mood: Euthymic - Speech/Language Expressive: Coherent - Psychomotor Activity Psychomotor Activity: Normal - Thought Process Thought Process: Intact - Thought Content Hallucinations: Absent Delusions: Absent - Self Perception Self Perception: No Impairment - Cognition Attention: Alert Memory, Immediate Recall: Intact Memory, Short Term: 2/3 Memory, Remote with Promptin/3 - Concentration Serial Sevens Intact: No Simple Calculations Intact: Yes - Abstraction Proverb Interpretation: Impaired Judgement: Minimally Impaired - Insight Insight: Intact - Impulse Control Impulse Control: Minimally Impaired - Suicidal Ideation Suicidal Ideation: No - Homicidal Ideation Homicidal Ideation: No Assessment/Plan 1) Continue with pending sale to [facility] psych meds. 2) Patient has the functional capacity to make Decisions at this time.
[2019-11-03] MEDS ORDERED: PT OWN MED DRAWER 7, Y5N ONE (21:15)
[2019-11-03] MEDS: ATORVASTATIN CA 20 MG TABLET (FP) PO SCH (21:31)
[2019-11-04] MEDS: DOCUSATE SODIUM 100 MG CAPSULE (FP) PO SCH ×3 (06:48→21:50)
[2019-11-04] MEDS ORDERED: PT OWN MED DRAWER 7, Y5N ONE ×2 (06:51→09:26)
[2019-11-04 07:42] LABS: BASO % 0.4 % (0-2.0); EOS % 2.1 % (0-4.5); HEMOGLOBIN 10.2 GM/dL (11.7-16.9); LYMPH % 11.2 % (8-40); MCH 33.4 pg (25.7-33.7); MCHC 33.8 g/dl (32.0-35.9); MEAN CELL VOLUME 98.8 fl (80-96); MEAN PLT VOLUME 8.2 fl (7.5-11.1); MONO % 12.3 % (3.8-10.2); PLATELET COUNT 246 K/MM3 (134-434); RBC 3.04 M/mm3 (4.00-5.60); RDW 14.5 % (11.9-15.9); WHITE BLOOD COUNT 6.5 K/mm3 (4.0-10.0)
--- NOTE | 2019-11-04 07:53 | PN ---
Progress Note (short form) - Note Progress Note: ORTHOPEDIC SURGERY PROGRESS NOTE Department of Orthopedic Surgery SUBJECTIVE No acute events overnight. No new complaints currently. Denies chest pain, shortness of breath, or calf pain. No nausea or vomiting. Tolerating oral intake. Pain control improving. PHYSICAL EXAM Constitutional: Alert and able to follow commands. No acute distress, appropriate mood and affect. No tenderness of the cervical or lumbar spine. Right Lower Extremity: Skin warm, dry, and intact; no lesions, rashes or ulcers noted. Ecchymosis right buttock and groin. Ecchymosis over the dorsal aspect of the forefoot. Muscle mass equal and symmetric to contralateral side. No atrophy noted. Tender to palpation at toes and buttock; nontender throughout rest of extremity. No cords or calf tenderness. No significant calf/ankle edema. Full passive ROM, free from pain. Joints stable with no pathologic laxity. EHL/TA/GS motor intact; SILT distally; 2+ DP pulses; Cap refill brisk. Tone and reflexes normal. Left Lower Extremity: Swelling and ecchymosis left ankle. Skin warm, dry, and intact; no lesions, rashes or ulcers noted. Muscle mass equal and symmetric to contralateral side. No atrophy noted. No masses or effusions noted. Tender to palpation at left ankle; nontender throughout rest of extremity. No cords or calf tenderness No significant calf/ankle edema. Full passive and active ROM, free from pain. Joints stable with no pathologic laxity. EHL/TA/GS motor intact; SILT distally; 2+ DP pulses; Cap refill brisk. Tone and reflexes normal. Intake & Output 11/02/19 11/03/19 11/04/19 23:59 23:59 23:59 Intake Total 600 450 30 Output Total 500 Balance 600 -50 30 Intake: Oral 600 450 30 Output: Urine 500 Void 500 Other: Voiding Method Bedside Commode Urinal Bowel Movement No No Weight 195 lb Height 5 ft 9 in Body Mass Index (BMI) 28.8 Weight Measurement Method Built in [facility] Active Medications Generic Name Dose Route Start Last Admin Trade Name Freq PRN Reason Stop Dose Admin Acetaminophen 650 mg 11/02/19 00:54 Tylenol - PO Q6H PRN PAIN LEVEL 1-5 Atorvastatin Calcium 20 mg 11/02/19 22:00 11/03/19 21:31 Lipitor - PO 20 mg HS [facility] Administration Clonazepam 1 mg 11/02/19 07:05 11/03/19 16:42 Klonopin - PO 1 mg TID PRN Administration ANXIETY Docusate Sodium 100 mg 11/02/19 06:00 11/04/19 06:48 Colace - PO 100 mg TID [facility] Administration Fluvoxamine Maleate 100 mg 11/02/19 10:00 11/03/19 21:32 Luvox - PO 100 mg BID [facility] Administration Folic Acid 1 mg 11/03/19 15:15 11/03/19 15:15 Folic Acid - PO 1 mg DAILY [facility] Administration Gabapentin 400 mg 11/02/19 18:00 11/03/19 17:23 Neurontin - PO 400 mg DAILY@1800 [facility] Administration Losartan Potassium 50 mg 11/02/19 10:00 11/03/19 10:50 Cozaar - PO 50 mg DAILY [facility] Administration Magnesium Hydroxide 30 ml 11/03/19 08:32 Milk Of Magnesia - PO DAILY PRN CONSTIPATION Metoprolol Succinate 50 mg 11/02/19 10:00 11/03/19 10:50 Toprol Xl - PO 50 mg DAILY [facility] Administration Multivitamins/Minerals/Vitamin C 1 tab 11/03/19 15:15 11/03/19 15:15 Tab-A-Vit - PO 1 tab DAILY [facility] Administration Oxycodone HCl 5 mg 11/01/19 22:55 11/03/19 15:15 Roxicodone - PO 5 mg Q6H PRN Administration PAIN LEVEL 6-10 Senna 1 tab 11/02/19 10:00 11/03/19 21:31 Senna - PO 1 tab BID [facility] Administration Thiamine HCl 100 mg 11/03/19 15:15 11/03/19 15:15 Vitamin B1 - PO 100 mg DAILY [facility] Administration Umeclidinium/Vilanterol 1 puff 11/02/19 10:00 11/03/19 10:51 Anoro Ellipta 62.5-25 Mcg Inh IH 1 puff DAILY [facility] Administration Vital Signs (last) Temp Pulse Resp BP Pulse Ox 98.3 F 83 18 128/79 96 11/04/19 05:35 11/04/19 05:35 11/04/19 05:35 11/04/19 05:35 11/03/19 20:55 Laboratory (coagulation) PT with INR 12.00 SEC (9.7-13.0) 11/01/19 15:20 ASSESSMENT AND PLAN Elias Merrill is a 74 year old male with (1) a right sided superior and inferior pubic ramus fracture, (2) left ankle sprain, (3) right forefoot sprain , and (4) acute L1 and L2 vertebral compression fractures, and L4 and L5 nondisplaced transverse process fractures. He is hemodynamicaly stable and neurologically intact. - No orthopedic surgical intervention for pelvis/sacral fractures - Monitor H/H - TLSO - Pain control: minimize narcotic use - DVT prophylaxis - Ice/Elevation right foot and left ankle - Appreciate medical management - Decubitus precautions heel/sacrum) - PT/OT; WBAT All questions were answered. Thank you for involving our team in the care of this patient. Please have the patient follow up in the office in 1 week. Please call us with any questions [phone].
[2019-11-04 08:02] LABS: BLOOD UREA NITROGEN 15.9 mg/dL (7-18); CALCIUM 8.8 mg/dL (8.5-10.1); CREATININE 0.8 mg/dL (0.55-1.3); MAGNESIUM 2.2 mg/dL (1.8-2.4); POTASSIUM 3.9 mmol/L (3.5-5.1)
--- NOTE | 2019-11-04 08:10 | PN ---
Progress Note (short form) - Note Progress Note: NEUROSURGERY Pain in LB and L buttock/hip, an/post thigh, veloz. No b/b dysfunction. Wants to go home today. PE: AF, VSS General- mildly obese, mild B ankle edema Neuro- L IP/Quad 4/5 pain limited; L TA/EHL 4+ Back-tender LS junction CT pelvis- R rsup ramus fx wth associated hematoma CT LS spine- L1 marked compression fx with mild cortex retropulsion; marked L2 compression fx; R L4 and L5 tr process fx Acute L1 & L2 compression, R L4 and L5 tr process fx R sup pubic ramus fx LS spine MRI to assess L sided nerve root/thecal sac compression given L sciatica and mild weakness of L f/u Ls spine x-rays in 2 weeks to assess fx pattern and alignment; further settling likely Recommend TLSO whenever OOB (delivered at bedside) Pt informed that fx could worsen significantly without immobilization F/u PMD for possible osteoporosis dx and tx
--- NOTE | 2019-11-04 08:29 | CONSULT ---
Consult Detox [facility] Reason for Current Admission/Consult: Patient with Alcohol and Benzo use disorder. Referred by:: mary quarles - History History of Present Illness: 74 year old alcohol dependence with mild withdrawal and benzodiazepine use disorder. CT pelvis- R rsup ramus fx wth associated hematoma CT LS spine- L1 marked compression fx with mild cortex retropulsion; marked L2 compression fx; R L4 and L5 tr process fx Acute L1 & L2 compression, R L4 and L5 tr process fx R sup pubic ramus fx LS spine MRI to assess L sided nerve root/thecal sac compression given L sciatica and mild weakness of L f/u Ls spine x-rays in 2 weeks to assess fx pattern and alignment; further settling likely Recommend TLSO whenever OOB (delivered at bedside) Pt informed that fx could worsen significantly without immobilization F/u PMD for possible osteoporosis dx and tx. - History Source History Provided By: Medical Record Limitations to Obtaining History: Physical Impairment - Alcohol/Substance Use Hx Alcohol Use: Yes (few beers a week) Hx Substance Use: No Hx Substance Use Treatment: No - Past Medical History Musculoskeletal: Yes: Chronic low back pain, Osteoarthritis, Other - Past Surgical History Past Surgical History: Yes: None Assessment Plan - Plan Plan: 1. Alcohol Dependence: Patient is not a daily drinker according to medical records. In addition, he just suffered a pelvic fracture and his mobility is highly impaired. [facility] does not have acute nursing capabilities. He would be a high risk for further falls and unlikely to do well in Rehab. Continue the Ativan Detox protocol. This patient is more appropriate for hospital detox with full nursing oversight but since he has capacity according to psychiatry to make decisions whether potts or unwise, he can refuse rehab services and sign out. Other option would be for him to enter nursing facility that provides substance use services, or other MAT outpatient treatment services would be more appropriate. Dr. Velazquez - Medication Detox Regimen/Protocol: Ativan
[2019-11-04] MEDS: oxyCODONE HCL 5 MG TABLET PO PRN (09:33)
[2019-11-04] MEDS: FOLIC ACID 1 MG TABLET (FP) PO SCH (09:34)
[2019-11-04] MEDS: SENNOSIDES 8.6MG TABLET (FP) PO SCH ×2 (09:34→21:50)
[2019-11-04] MEDS: MULTIVITAMINS (DAILY MVI) TABLET (FP) PO SCH (09:34)
[2019-11-04] MEDS: THIAMINE HCL 100 MG TABLET (FP) PO SCH (09:35)
[2019-11-04] MEDS: LOSARTAN POTASSIUM 50 MG TABLET (FP) PO SCH (09:35)
[2019-11-04] MEDS: UMECLIDINIUM/VILANTEROL (ANORO) 62.5/25 MCG INHALER IH SCH (09:37)
[2019-11-04 13:39] LABS: ANISOCYTOSIS 1+; MACROCYTOSIS 0; PLATELET ESTIMATE NORMAL
--- NOTE | 2019-11-04 15:55 | CONS ---
DATE OF CONSULTATION: DATE OF DICTATION: 11/04/2019 REQUESTING PHYSICIAN: Albino Louis MD RESIDENT CARE SPEC: Kanu Carlson MD, Neurosurgery CHIEF COMPLAINT: Status post mechanical fall 1 week earlier with lower back pain and left greater than right lower extremity radiculopathy. HISTORY OF PRESENT ILLNESS: Patient is a 74-year-old, male with a history of hypertension, hypercholesterolemia, coronary artery disease, status post [place] and CABG 7 years earlier, COPD, who is status post mechanical fall. He stated that he was caught by his car door and was pushed backwards and fell down. He initially went to [facility], but left before he was treated by report. He also went to [facility] and was discharged with pain medications only. He was to follow with physical therapy and anti-inflammatory medication. Over the past couple of days, he had been found with increasing difficulty with walking with pain in his left greater than right hip. This was worse with ambulation. The pain goes down the left buttock, as well. He denies bowel or bladder incontinence. He denies any leg weakness or numbness. PAST MEDICAL HISTORY: Significant for hypertension, coronary artery disease, COPD. MEDICATIONS: Include Tylenol, Cozaar, Neurontin, Luvox, Anoro Ellipta, Klonopin, Toprol XL, Colace, Milk of Magnesia, senna, Lipitor, vitamin C, Roxicodone, folic acid, vitamin B1. ALLERGIES: There is no known drug allergy. FAMILY HISTORY: Noncontributory. SOCIAL HISTORY: He quit smoking many years ago. He drinks alcohol socially. He does not use recreational drugs. REVIEW OF SYSTEMS: Otherwise negative for other major constitutional, head and neck, cardiovascular, pulmonary, gastrointestinal, genitourinary, endocrinological, neurological or psychological problem except for the above. He denied any systemic malignancy nor does he have a history of a recent infection. LABORATORY: Examination demonstrated a white blood cell count of 5.6, hemoglobin was 9.7 previously was 10.5. INR is 1.02. Serum sodium was 38 and potassium was 3.7. BUN and creatinine are 15.6 and 0.7, respectively. IMAGING: CT scan of the lumbar spine demonstrated marked compression fracture of the L1 and L2 vertebral bodies. There is slight retropulsion of superior endplate of L1. There is paraspinal soft tissue swelling. There are also right L4 and L5 transverse processes fractures. A comminuted right superior ramus fracture of the pubis is also noted. PHYSICAL EXAMINATION: General: He is awake, alert, and oriented . General examination is unremarkable. He is somewhat obese. Coronary: Examination demonstrated a regular rhythm. Chest: Incision was well healed. Lungs: Clear. Abdomen: Obese, but benign. Extremities: Examination shows no obvious signs of DVT. Neurologic: He is awake, alert, and oriented . He was examined in the echocardiogram suite. Cranial nerves examination is intact 2 through 12. Motor examination shows 5/5 strength, except which are 4/5, as well as left tibialis and extensor hallucis longus which are 4+. Sensory examination intact to light touch. Deep tendon reflexes are hyporeflexive throughout. There is no pathological long-tract sign. He has tenderness to palpation to bilateral lumbosacral junctions. IMPRESSION: 1. Acute L1 and L2 compression fracture, status post mechanical fall; possibly contributed by osteoporosis. 2. Hypertension/coronary artery disease. 3. Chronic obstructive pulmonary disease. 4. Right superior pubic ramus fracture with associated hematoma. RECOMMENDATIONS: Patient presented with a mechanical fall about 1 week earlier. He has gone to multiple medical institutions over the past week, but remains with some back pain. His pain is worse with ambulation. A CT scan demonstrated marked compression deformities of L1, L2 vertebral bodies with some mild superior L1-endplate retropulsion. There is no marked stenosis on the CT scan. He does have weakness of the left upper extremity, possibly related to the fracture. An MRI of the lumbar spine is recommended. He should also consider a TLSO brace whenever out of bed, which was ordered for him. He was advised to be compliant with the brace regimen. A followup LS-spine x-ray should be done in 2 weeks to assess the fracture pattern and spinal alignment. Further failing of the fracture is to be expected, given the degree of marked compression deformities. He should also follow up with his outpatient medical team for possible osteoporosis diagnosis and treatment. The above was discussed with the requesting physician. The patient also should be observed for his hemoglobin and hematocrit because of the pelvic fracture. KANU CARLSON M.D. [id number]
--- NOTE | 2019-11-04 16:51 | PN ---
Physical Exam: SUBJECTIVE: Patient seen and examined at the bedside. Patient today is more agreeable to having workup for his bilateral lower extremity weakness. States that he is tired and wants progress with his medical care. Endorses constipation. Denies cp, sob, abd pain, n/v/c/d, dizziness, lightheadedness, headaches, fever, chills, dysuria, hematuria. OBJECTIVE: Vital Signs Period Temp Pulse Resp BP Sys/Nichols Pulse Ox Last 24 Hr 97.3 F-98.3 F 79-92 18-20 113-128/65-87 95-96 GENERAL: Awake, alert, and oriented to self and location. More agreeable today. EYES: Extraocular movements intact. EARS, NOSE, THROAT: Moist mucous membranes. LUNGS: Breath sounds equal, and diminished. No wheezes and no crackles. No accessory muscle use. HEART: Regular rate and rhythm, normal S1 and S2 without murmur, rub. ABDOMEN: Soft, nontender, not distended, normoactive bowel sounds, no guarding, no rebound, no masses. MUSCULOSKELETAL: Decreased range of motion secondary to pain in the lower extremities. LOWER EXTREMITIES: 2+ pulses, warm, well-perfused. No calf tenderness. Swelling of the left ankle. NEUROLOGICAL: Cranial nerves II-XII intact. 5/5 muscle strength bilaterally upper extremities. 3/5 bilaterally lower extremities proximally, 5/5 distally. PSYCHIATRIC: Appropriate mood and affect. SKIN: Noted swelling and ecchymoses on the left and right ankles. Laboratory Results - last 24 hr 11/02/19 11/04/19 11/04/19 07:42 06:38 06:38 WBC 6.5 RBC 3.04 L Hgb 10.2 L Hct 30.0 L MCV 98.8 H MCH 33.4 MCHC 33.8 RDW 14.5 Plt Count 246 MPV 8.2 Absolute Neuts (auto) 4.8 Neutrophils % 74.0 Neutrophils % (Manual) 64.8 Band Neutrophils % 0.0 Lymphocytes % 11.2 Lymphocytes % (Manual) 9.1 D Monocytes % 12.3 H Monocytes % (Manual) 17 H D Eosinophils % 2.1 Eosinophils % (Manual) 2.3 Basophils % 0.4 Basophils % (Manual) 0.0 Myelocytes % (Man) 1 D Promyelocytes % (Man) 0 Blast Cells % (Manual) 1 H D Nucleated RBC % 0 Metamyelocytes 0 D Hypochromia 0 Platelet Estimate Normal Polychromasia 1+ Anisocytosis 1+ Microcytosis 1+ Macrocytosis 0 Sodium 140 Potassium 3.9 Chloride 107 Carbon Dioxide 25 Anion Gap 8 BUN 15.9 Creatinine 0.8 Est GFR (CKD-EPI)AfAm 100.57 Est GFR (CKD-EPI)NonAf 86.77 Random Glucose 107 H Calcium 8.8 Magnesium 2.2 Transferrin 277 Active Medications Generic Name Dose Route Start Last Admin Trade Name Freq PRN Reason Stop Dose Admin Acetaminophen 650 mg 11/02/19 00:54 Tylenol - PO Q6H PRN PAIN LEVEL 1-5 Atorvastatin Calcium 20 mg 11/02/19 22:00 11/03/19 21:31 Lipitor - PO 20 mg HS [facility] Administration Clonazepam 1 mg 11/02/19 07:05 11/03/19 16:42 Klonopin - PO 1 mg TID PRN Administration ANXIETY Docusate Sodium 100 mg 11/02/19 06:00 11/04/19 15:36 Colace - PO Not Given TID [facility] Fluvoxamine Maleate 100 mg 11/02/19 10:00 11/04/19 09:35 Luvox - PO 100 mg BID [facility] Administration Folic Acid 1 mg 11/03/19 15:15 11/04/19 09:34 Folic Acid - PO 1 mg DAILY [facility] Administration Gabapentin 400 mg 11/02/19 18:00 11/03/19 17:23 Neurontin - PO 400 mg DAILY@1800 [facility] Administration Losartan Potassium 50 mg 11/02/19 10:00 11/04/19 09:35 Cozaar - PO 50 mg DAILY [facility] Administration Magnesium Hydroxide 30 ml 11/03/19 08:32 Milk Of Magnesia - PO DAILY PRN CONSTIPATION Metoprolol Succinate 50 mg 11/02/19 10:00 11/04/19 09:34 Toprol Xl - PO 50 mg DAILY [facility] Administration Multivitamins/Minerals/Vitamin C 1 tab 11/03/19 15:15 11/04/19 09:34 Tab-A-Vit - PO 1 tab DAILY [facility] Administration Oxycodone HCl 5 mg 11/01/19 22:55 11/04/19 09:33 Roxicodone - PO 5 mg Q6H PRN Administration PAIN LEVEL 6-10 Senna 1 tab 11/02/19 10:00 11/04/19 09:34 Senna - PO 1 tab BID [facility] Administration Thiamine HCl 100 mg 11/03/19 15:15 11/04/19 09:35 Vitamin B1 - PO 100 mg DAILY [facility] Administration Umeclidinium/Vilanterol 1 puff 11/02/19 10:00 11/04/19 09:37 Anoro Ellipta 62.5-25 Mcg Inh IH 1 puff DAILY [facility] Administration ASSESSMENT/PLAN: Elias Merrill is a 74 year old male with a past medical history of [place] (s/p CABG 7 years prior), HTN, HLD, COPD admitted for pubic fractures. Pubic Rami Fracture - noted hematoma on CT scan - Ortho consulted, recs appreciated - oxycodone 5mg q6h prn and tylenol prn for pain - continue home gabapentin - physical therapy noting that patient unable to walk well and will benefit from subacute rehab - foot and ankle x-ray with no acute fracture - ice and elevation of limbs - UA negative Compression fractures of L1/L2 and transverse fracture of L3/L4 - neurosurgery consulted, recs appreciated - lumbar spine MRI - TLSO brace - will require 2 weeks interval x-rays - will need outpatient neurosurgery follow up Edema - likely cardiac in nature and dependent edema contributory from fracture - echo limited, noting normal LV size, mild tricuspid regurg, borderline aortic root dilation - CXR with no acute pathology Scrotal Edema - scrotal U/S negative for pathology - urology consulted, recs appreciated - scrotal elevation and ice packs as per urology - pelvic and renal U/S, results pending Constipation - resolving - on senna and colace Anemia - attempt to get records for [place] and [place] to assess if anemia is worsening since those admissions - iron studies - continue to monitor COPD - continue home Anoro HTN - continue home losartan, toprol HLD - continue home Lipitor CT scan noting enlarged prostate gland, nonobstructing calculus, L adrenal nodule - urology consulted - renal U/S noting enlarged prostate, large postvoid residual, irregular thickening of the urinary bladder wall - will require outpatient urology follow up - will require endocrinology follow up Infrarenal AAA - abd U/S noting 5.0cm abdominal aortic aneurysm - will need outpatient vascular follow up ?Psychiatric Diagnosis - hx of alcohol abuse - on Luvox and clonazepam - as per son, patient overuses his clonazepam - will need records to find out psychiatric diagnosis - addiction medicine consulted DVT PPx - Lovenox 40 units subq daily FEN - no standing fluids, encourage PO intake - continue to monitor electrolyte and replete as necessary - sodium/fat controlled diet Dispo - continue to monitor on Med-surg Problem List - Problems (1) Constipation Code(s): K59.00 - CONSTIPATION, UNSPECIFIED Qualifiers: Constipation type: unspecified constipation type Qualified Code(s): K59.00 - Constipation, unspecified (2) Pelvic fracture Code(s): S32.9XXA - FRACTURE OF UNSP PARTS OF LUMBOSACRAL SPINE AND PELVIS, INIT Qualifiers: Encounter type: subsequent encounter Pelvic bone location: unspecified part of pelvis Fracture type: closed Fracture alignment: nondisplaced Fracture healing: with routine healing Qualified Code(s): S32.9XXD - Fracture of unspecified parts of lumbosacral spine and pelvis, subsequent encounter for fracture with routine healing Visit type - Emergency Visit Emergency Visit: Yes ED Registration Date: 11/01/19 Care time: The patient presented to the Emergency Department on the above date and was hospitalized for further evaluation of their emergent condition. - New Patient This patient is new to me today: No - Critical Care Critical Care patient: No
[2019-11-04] MEDS: GABAPENTIN 400 MG CAPSULE (FP) PO SCH (17:41)
--- NOTE | 2019-11-04 18:25 | PN ---
Teaching Attending Note Name of Resident: Loraine Reynoso ATTENDING PHYSICIAN STATEMENT I saw and evaluated the patient. I reviewed the resident's note and discussed the case with the resident. I agree with the resident's findings and plan as documented. SUBJECTIVE: pain in L sided back with radiation to L leg no urinary incontinence or fecal incontinence OBJECTIVE: NAD , not very cooperative CV: RRR, LUNGS : refuses to turn Ext : No edema or erythema. + Bruises. R forefoot with bruises Neuro of LE: limited due to poor cooperation . knee jerk 1+ b/l . hip flexion 2 + b/l . 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 9- R foot sprain plan : - all imaging done to date reviewed. - He refused L spine MRI yesterday, he agrees now. He was given one more chance. - conservative management of the pelvic Fxs - vascular f.u for the AAA and CHAVA aneurysm - out pt f.u of the adrenal nodule - cont neurontin - add lidocaine patch - cont losartan and toprol - repeat LFTs tomorrow - He is agreeable to rehab placement
[2019-11-04] MEDS: LIDOCAINE 5% TOPICAL PATCH TP SCH (19:50)
[2019-11-04] MEDS: ATORVASTATIN CA 20 MG TABLET (FP) PO SCH (21:50)
[2019-11-04] MEDS ORDERED: LIDOCAINE PATCH REMOVAL MC SCH (22:00)
--- NOTE | 2019-11-04 22:49 | CONS ---
DATE OF CONSULTATION: DATE OF DICTATION: 11/04/2019 The patient is a 74-year-old male with history of fracture of pelvic bone. Today's white count is 6.5, hemoglobin and hematocrit are 10.2 over 30.0, platelets are 246. The patient's BUN and creatinine are 15.9 over 0.8. His scrotal ecchymosis and edema has diminished. CAT scan findings included an enlarged prostate, a thickened wall bladder, and increased residual urine and an unobstructing left middle pole renal stone are noted. Patient will need a urologic workup and treatment as an outpatient. Also has abdominal aortic aneurysm as noted, and patient will undergo a vascular workup as an outpatient. Will recommend the patient continue on tamsulosin. Will follow in office after physical therapy treatment is completed. CHARLES NEW M.D. [id number]
[2019-11-05] MEDS: DOCUSATE SODIUM 100 MG CAPSULE (FP) PO SCH ×2 (05:37→14:09)
--- NOTE | 2019-11-05 07:34 | PN ---
Progress Note (short form) - Note Progress Note: ORTHOPEDIC SURGERY PROGRESS NOTE Department of Orthopedic Surgery SUBJECTIVE No acute events overnight. No new complaints currently. Denies chest pain, shortness of breath, or calf pain. No nausea or vomiting. Tolerating oral intake. Pain control improving. PHYSICAL EXAM Constitutional: Alert and able to follow commands. No acute distress, appropriate mood and affect. No tenderness of the cervical or lumbar spine. Right Lower Extremity: Skin warm, dry, and intact; no lesions, rashes or ulcers noted. Ecchymosis right buttock and groin. Ecchymosis over the dorsal aspect of the forefoot. Muscle mass equal and symmetric to contralateral side. No atrophy noted. Tender to palpation at toes and buttock; nontender throughout rest of extremity. No cords or calf tenderness. No significant calf/ankle edema. Full passive ROM, free from pain. Joints stable with no pathologic laxity. EHL/TA/GS motor intact; SILT distally; 2+ DP pulses; Cap refill brisk. Tone and reflexes normal. Left Lower Extremity: Swelling and ecchymosis left ankle. Skin warm, dry, and intact; no lesions, rashes or ulcers noted. Muscle mass equal and symmetric to contralateral side. No atrophy noted. No masses or effusions noted. Tender to palpation at left ankle; nontender throughout rest of extremity. No cords or calf tenderness No significant calf/ankle edema. Full passive and active ROM, free from pain. Joints stable with no pathologic laxity. EHL/TA/GS motor intact; SILT distally; 2+ DP pulses; Cap refill brisk. Tone and reflexes normal. Intake & Output 11/03/19 11/04/19 11/05/19 23:59 23:59 23:59 Intake Total 450 380 100 Output Total 500 Balance -50 380 100 Intake: Oral 450 380 100 Output: Urine 500 Void 500 Other: Voiding Method Urinal Urinal # Unmeasured Voids Void 2 2 Bowel Movement No No No # Bowel Movements 3 Active Medications Generic Name Dose Route Start Last Admin Trade Name Freq PRN Reason Stop Dose Admin Acetaminophen 650 mg 11/02/19 00:54 Tylenol - PO Q6H PRN PAIN LEVEL 1-5 Atorvastatin Calcium 20 mg 11/02/19 22:00 11/04/19 21:50 Lipitor - PO 20 mg HS PAPI Administration Clonazepam 1 mg 11/02/19 07:05 11/03/19 16:42 Klonopin - PO 1 mg TID PRN Administration ANXIETY Docusate Sodium 100 mg 11/02/19 06:00 11/05/19 05:37 Colace - PO 100 mg TID PAPI Administration Fluvoxamine Maleate 100 mg 11/02/19 10:00 11/04/19 21:50 Luvox - PO 100 mg BID PAPI Administration Folic Acid 1 mg 11/03/19 15:15 11/04/19 09:34 Folic Acid - PO 1 mg DAILY [facility] Administration Gabapentin 400 mg 11/02/19 18:00 11/04/19 17:41 Neurontin - PO 400 mg DAILY@1800 [facility] Administration Lidocaine 1 patch 11/04/19 18:30 11/04/19 19:50 Lidoderm Patch - TP 1 patch DAILY [facility] Administration Losartan Potassium 50 mg 11/02/19 10:00 11/04/19 09:35 Cozaar - PO 50 mg DAILY [facility] Administration Magnesium Hydroxide 30 ml 11/03/19 08:32 Milk Of Magnesia - PO DAILY PRN CONSTIPATION Metoprolol Succinate 50 mg 11/02/19 10:00 11/04/19 09:34 Toprol Xl - PO 50 mg DAILY [facility] Administration Miscellaneous 1 each 11/04/19 22:00 11/04/19 21:51 Lidoderm Patch Removal MC Not Given DAILY@2200 [facility] Multivitamins/Minerals/Vitamin C 1 tab 11/03/19 15:15 11/04/19 09:34 Tab-A-Vit - PO 1 tab DAILY [facility] Administration Oxycodone HCl 5 mg 11/01/19 22:55 11/04/19 09:33 Roxicodone - PO 5 mg Q6H PRN Administration PAIN LEVEL 6-10 Senna 1 tab 11/02/19 10:00 11/04/19 21:50 Senna - PO 1 tab BID [facility] Administration Thiamine HCl 100 mg 11/03/19 15:15 11/04/19 09:35 Vitamin B1 - PO 100 mg DAILY [facility] Administration Umeclidinium/Vilanterol 1 puff 11/02/19 10:00 11/04/19 09:37 Anoro Ellipta 62.5-25 Mcg Inh IH 1 puff DAILY [facility] Administration Vital Signs (last) Temp Pulse Resp BP Pulse Ox 98.0 F 78 20 132/76 95 11/05/19 05:20 11/05/19 05:20 11/05/19 05:20 11/05/19 05:20 11/04/19 21:00 Laboratory (coagulation) PT with INR 12.00 SEC (9.7-13.0) 11/01/19 15:20 Laboratory 11/04/19 06:38 11/04/19 06:38 ASSESSMENT AND PLAN Elias Merrill is a 74 year old male with (1) a right sided superior and inferior pubic ramus fracture, (2) left ankle sprain, (3) right forefoot sprain , and (4) L1 and L2 vertebral compression fractures, and L4 and L5 nondisplaced transverse process fractures. He is hemodynamicaly stable and neurologically intact. - No orthopedic surgical intervention for pelvis/sacral fractures. Will require radiographs as an outpatient to assess fracture healing. - Monitor H/H - TLSO - Pain control: minimize narcotic use - DVT prophylaxis - Ice/Elevation right foot and left ankle - Appreciate medical management - Decubitus precautions heel/sacrum - PT/OT; WBAT All questions were answered. Thank you for involving our team in the care of this patient. Please have the patient follow up in the office in 1-2 weeks. Please call us with any questions [phone].
[2019-11-05 08:15] LABS: BASO % 0.4 % (0-2.0); HEMATOCRIT 31.5 % (35.4-49); HEMOGLOBIN 10.3 GM/dL (11.7-16.9); LYMPH % 14.4 % (8-40); MCH 32.7 pg (25.7-33.7); MCHC 32.8 g/dl (32.0-35.9); MEAN CELL VOLUME 99.8 fl (80-96); MEAN PLT VOLUME 7.9 fl (7.5-11.1); MONO % 12.9 % (3.8-10.2); NEUT % 70.3 % (42.8-82.8); PLATELET COUNT 267 K/MM3 (134-434); RBC 3.15 M/mm3 (4.00-5.60); RDW 14.8 % (11.9-15.9); WHITE BLOOD COUNT 5.4 K/mm3 (4.0-10.0)
[2019-11-05 08:46] LABS: ALBUMIN 3.2 g/dl (3.4-5.0); BILIRUBIN,DIRECT 0.4 mg/dL (0.0-0.2); BILIRUBIN,TOTAL 1.6 mg/dL (0.2-1); TOT PROT 6.5 g/dl (6.4-8.2)
--- NOTE | 2019-11-05 09:09 | PN ---
Progress Note (short form) - Note Progress Note: NEUROSURGERY Pain in LB and L buttock/hip, an/post thigh, veloz. No b/b dysfunction. PE: AF, VSS Sitting up in chair General- mildly obese, mild B ankle edema Neuro- L IP/Quad 4/5 pain limited; L TA/EHL 4+ Back-tender LS junction CT pelvis- R rsup ramus fx wth associated hematoma CT LS spine- L1 marked compression fx with mild cortex retropulsion; marked L2 compression fx; R L4 and L5 tr process fx MRI- partial study only- Marked L1 > L2 compression fx with L1 mild retropulsion ; L4-5 spondylolisthesis, L5-S1 DDD/Modic changes, no marked central stenosis at any level Acute L1 & L2 compression, R L4 and L5 tr process fx R sup pubic ramus fx f/u Ls spine x-rays in 2 weeks to assess fx pattern and alignment; further settling likely TLSO whenever OOB (delivered at bedside) x 3 months Non-compliant with TLSO brace, but states he will try again Pt informed that fx could worsen significantly without immobilization F/u PMD for possible osteoporosis dx and tx
--- NOTE | 2019-11-05 09:29 | PN ---
Teaching Attending Note ATTENDING PHYSICIAN STATEMENT I saw and evaluated the patient. I reviewed the resident's note and discussed the case with the resident. I agree with the resident's findings and plan as documented. Seen and examined; please see resident note for further historical information. I personally verified all ablerts historical information and exam findings. Personally interpreted all imaging and diagnostics and reviewed appropriate consults. I reviewed all labs and vital signs as per resident note and EMR as documented. I agree with the above assessment and plan unless supplemented by myself in the following. 10 item review of systems completed and is negative aside from history of present illness VS, labs, imaging reviewed NAD, AAO, resting comfortably in bed. RRR s1/2 no mgr Normal muscle tone, moves all 5 extremities with normal apparent strength Neck is supple, trachea midline, no alexandra LN Lungs CTAB with sym expansion NT ND +BS no alexandra organomegaly CN2-12 wnl; no FND NC AT EOMI PERRLA Normal mood, appropriate behavior, euthymic affect No skin breakdown or rashes noted Lumbar MRI read is pending, image has been completed. 11/04/2018 vascular study for left leg venous ultrasound is negative for DVT 11/03/2019 echocardiogram is negative for pericardial effusion, could not rule out any regional wall motion abnormality due to poor acoustic window with poor RV visualization but assume normal RVSP 11/03/2019 bladder ultrasound reviewed 11/03/2019 chest x-ray portable reviewed, negative for acute chest pathology 11/02/2019 scrotum ultrasound reviewed with scrotal wall suggestion of edema due to thickening but normal testicles without any evidence of torsion or acute pathology 11/01/[address] L-[address] CT completed, positive for comminuted fracture of the right superior pubic ramus with surrounding soft tissue edema and suggestion of a hematoma extending to the right lower pelvis measuring 4 cm, right inferior pubic ramus fracture noted EKG reviewed from admission ASSESSMENT AND PLAN: Per neurosurgery note, patient has acute L1 and L2 compression and recommended immobilization stating that they could worsen significantly without this. Recommended following up lumbar spine x-rays in 2 weeks to determine fracture pattern and alignment with further settling likely to occur Problems include: Acute on chronic back pain secondary to: # Acute superior and inferior right pubic rami fractures # Associated hematoma # L4-L5 transverse process fracture # L1-L2 compression fracture with mild retropulsion of L1 # L4-L5 spondylolisthesis without spinal stenosis
[2019-11-05] MEDS ORDERED: PT OWN MED DRAWER 7, Y5N ONE (09:42)
[2019-11-05] MEDS: LIDOCAINE 5% TOPICAL PATCH TP SCH (09:42)
[2019-11-05] MEDS: UMECLIDINIUM/VILANTEROL (ANORO) 62.5/25 MCG INHALER IH SCH (09:43)
[2019-11-05] MEDS: FOLIC ACID 1 MG TABLET (FP) PO SCH (09:43)
[2019-11-05] MEDS: LOSARTAN POTASSIUM 50 MG TABLET (FP) PO SCH (09:43)
[2019-11-05] MEDS: MULTIVITAMINS (DAILY MVI) TABLET (FP) PO SCH (09:43)
[2019-11-05] MEDS: oxyCODONE HCL 5 MG TABLET PO PRN (09:43)
[2019-11-05] MEDS: THIAMINE HCL 100 MG TABLET (FP) PO SCH (09:43)
[2019-11-05] MEDS: SENNOSIDES 8.6MG TABLET (FP) PO SCH (09:43)
[2019-11-05 13:17] LABS: PLATELET ESTIMATE NORMAL
[2019-11-05 13:55] LABS: ANISOCYTOSIS 1+; MACROCYTOSIS 1+; OVALOCYTE 1+
--- NOTE | 2019-11-05 14:58 | CONS ---
DATE OF CONSULTATION: DATE OF DICTATION: 11/05/2019 HISTORY: Patient is a 74-year-old male with a history of fracture of his superior and inferior ramus of the pubic bone. Was also found to have fractures at L2-L3 and also spinal canal stenosis. Patient does have symptoms of prostatism including frequency, urgency, and nocturia x2. Presently, his white count is 5.4. The BUN 15.9, creatinine 0.8. The urinalysis is negative for blood. The patient's renal and pelvic ultrasound revealed a thickened bladder with a large prostate. Patient will be going to rehabilitation for ambulation. Will be followed up in my office as an outpatient. Will be signing off. René [id number]
--- NOTE | 2019-11-05 16:22 | DS ---
Physical Exam: SUBJECTIVE: Patient seen and examined at the bedside. Patient endorses that he feels better and is ready to go to rehab. States that he continues to have some pain in his hip and has pain when he walks. Denies cp, sob, abd pain, n/v/c/d, fevers, chills, headaches, dizziness, lightheadedness. OBJECTIVE: Vital Signs Period Temp Pulse Resp BP Sys/Nichols Pulse Ox Last 24 Hr 97.5 F-98.3 F 77-86 20-21 115-132/66-77 95-96 PHYSICAL EXAM GENERAL: Awake, alert, and oriented to self and location. EYES: Extraocular movements intact. EARS, NOSE, THROAT: Moist mucous membranes. LUNGS: Breath sounds equal, and diminished. No wheezes and no crackles. No accessory muscle use. HEART: Regular rate and rhythm, normal S1 and S2 without murmur, rub. ABDOMEN: Soft, nontender, not distended, normoactive bowel sounds, no guarding, no rebound, no masses. MUSCULOSKELETAL: Decreased range of motion secondary to pain in the lower extremities. LOWER EXTREMITIES: 2+ pulses, warm, well-perfused. No calf tenderness. Swelling of the left ankle. NEUROLOGICAL: Cranial nerves II-XII intact. 5/5 muscle strength bilaterally upper extremities. 3/5 bilaterally lower extremities proximally, 5/5 distally. PSYCHIATRIC: Appropriate mood and affect. SKIN: Noted swelling and ecchymoses on the left and right ankles. LABS Laboratory Results - last 24 hr 11/05/19 11/05/19 07:46 07:46 WBC 5.4 RBC 3.15 L Hgb 10.3 L Hct 31.5 L MCV 99.8 H MCH 32.7 MCHC 32.8 RDW 14.8 Plt Count 267 MPV 7.9 Absolute Neuts (auto) 3.8 Neutrophils % 70.3 Neutrophils % (Manual) 65.0 Band Neutrophils % 0.0 Lymphocytes % 14.4 D Lymphocytes % (Manual) 14.5 D Monocytes % 12.9 H Monocytes % (Manual) 11 H Eosinophils % 2.0 Eosinophils % (Manual) 1.0 Basophils % 0.4 Basophils % (Manual) 1.0 D Myelocytes % (Man) 0 D Promyelocytes % (Man) 0 Blast Cells % (Manual) 0 D Nucleated RBC % 0 Metamyelocytes 4 H D Platelet Estimate Normal Polychromasia 1+ Anisocytosis 1+ Macrocytosis 1+ Ovalocytes 1+ Total Bilirubin 1.6 H Direct Bilirubin 0.4 H AST 21 ALT 20 Alkaline Phosphatase 87 Total Protein 6.5 Albumin 3.2 L HOSPITAL COURSE: Elias Merrill is a 74 year old male with a past medical history of DC (s/p CABG 7 years prior), HTN, HLD, COPD admitted for pubic fractures. Lumbar Pelvic CT noting fracture of the R superior/inferior pubic rami, L1-L2 compression fx, enlarged prostate gland, scoliosis, infrarenal AAA, nonobstructing left renal calculi, nonspecific bladder wall thickening, L adrenal nodule suggestive of adenoma. Foot and ankle x-ray with no acute fracture. Was seen by orthopedic surgery who recommended WBAT, ice and elevation of limbs, subacute rehab, and to follow up with orthopedics outpatient. Patient to continue taking pain medications as needed. Was noted to have compression fractures and had MRI which confirmed fractures and with no nerve impingement. Patient was seen by neurosurgery who recommended TLSO brace, to follow up with spine x-rays in 2 weeks and to follow up with neurosurgery outpatient. Patient informed that not wearing the brace could lead to worsening of the lumbar spine fractures. Patient had echo performed noting normal LV size, mild tricuspid regurg, borderline aortic root dilation. Patient to follow up with their primary care physician regarding these findings. Noted with incidental findings of enlarged prostate gland, nonobstructing calculus, L adrenal nodule confirmed on ultrasound for which the patient was advised to follow up with urology and endocrinology. Was started on tamsulosin for post-void residual in the setting of enlarged prostate. Patient was noted to have AAA confirmed on aorta U/S, was advised to follow up with vascular surgery outpatient. Was noted to have elevated biluribin and history of drinking and benzo use. Advised to follow up with gastroenterology. Patient was advised to cease drinking alcohol and minimize his use of benzodiazepines. Attempted to contact the patient's psychiatrist who prescribes him clonazepam, however no one was available to answer the phone on multiple tries. Patient was started on a bowel regimen while admitted. Patient was advised to follow up with the recommendations of his SNF and orthopedic surgeon for physical therapy. He was in agreement with the plan and agreeable for rehab. Patient was discharged in stable medical condition. Date of Admission:11/01/19 Date of Discharge: 11/05/19 Minutes to complete discharge: 35 Discharge Summary Problems reviewed: Yes Reason For Visit: BACK/LEG PAIN Current Active Problems Constipation (Chronic) Pelvic fracture (Chronic) Condition: Stable - Instructions Diet, Activity, Other Instructions: You were admitted after you had a fall and were found to have a fracture in your pelvis. You were seen by the orthopedic surgeon (bone doctor) who recommended that have physical therapy and follow up with them in the outpatient clinic. You are to continue taking pain medication as needed and to have physical therapy at a care home facility. You were found to have multiple compression fractures in your spine and seen by the neurosurgeon who recommended you to wear a back brace, another x-ray of your back in 2 weeks, and to follow up with the neurosurgeon in the outpatient clinic. MEDICATIONS START to take acetaminophen 650mg every 6 hours as needed for pain. START to take a lidocaine patch 5% for pain. START to take Colace 100mg three times a day. START to take senna 1 tab at night. START to take tamsulosin 0.4mg once daily. START to take Milk of Magnesia 30mL once daily as needed for constipation. REFERRALS Please follow up with your primary care doctor, Dr. Russell Gomez, within 1 week. Please follow up with the urologist, Dr. Bianca Flannery, within 1 week. Please follow up with the neurosurgeon, Dr. Russell Childers, within 1 week. Please follow up with the embryology professor, Dr. Bia Snow, within 1 week. Please follow up with the orthopedic surgeon, Leonel Bae, within 1 week. Please follow up with the vascular surgeon, Dr. Phu Talley, within 1 week. Please follow up with the clinical specialist medical device, Dr. Clifford Gustafson, within 1 week. SPECIAL INSTRUCTIONS Please work with physical therapy in order to regain your strength at the rehab center. Please wear your back brace in order to prevent any progression of your fractures in your spine. You will need to get repeat x-rays of your back in 2 weeks. You are advised to get a repeat CBC in 1 week to check your blood counts for anemia. While you were admitted you were found to have an enlarged prostate, a small kidney stone, and a nodule above your kidney. You are advised to follow up with the urologist for these findings. You are also advised to follow up with an embryology professor for these findings. You had an ultrasound which showed that your abdominal aorta (large artery in your abdomen) is enlarged. You are advised to follow up with a vascular surgeon for these findings. You were found to have elevations in some of your liver tests, you are advised to follow up with a clinical specialist medical device (stomach, liver, intestine doctor). You are encouraged to cease drinking alcohol. Stopping drinking now can prevent any further damage to your kidneys, liver, heart, brain, and other vital organs. It is highly advised that you slow your use of clonazepam that may be causing you to feel lightheaded or dizzy. Please speak to your psychiatrist about slowing your use of clonazepam. If you have any further symptoms of complete inability to walk, chest pain, shortness of breath, fevers, bleeding, dizziness, lightheadedness, or any other general feelings of unwellness, please call 911 or go to your nearest emergency room. Referrals: Russell Weinstein MD [Primary Care Provider] - 1 Week Delio Gustafson DO [Staff Physician] - 1 Week Russell Childers MD [Staff Physician] - 1 Week Phu Talley DO [Staff Physician] - 1 Week Leonel Bae DO [Staff Physician] - 1 Week Bianca Flannery MD [Staff Physician] - 1 Week Bia Snow MD [Staff Physician] - 1 Week Disposition: [facility] - Home Medications Comprehensive Discharge Medication List: Ambulatory Orders Fluvoxamine Maleate [Luvox -] 100 mg PO BID 01/02/13 Metoprolol Succinate [Toprol XL -] 50 mg PO DAILY 01/02/13 Losartan Potassium [Cozaar -] 50 mg PO DAILY #0 01/06/13 Atorvastatin Ca [Lipitor] 20 mg PO HS 11/01/19 Clonazepam 1 mg PO TID PRN 11/01/19 Gabapentin 400 mg PO DAILY 11/01/19 Umeclidinium Brm/Vilanterol Tr [Anoro Ellipta 62.5-25 Mcg INH] 1 each IH DAILY 11/01/19 Acetaminophen [Tylenol .Regular Strength -] 650 mg PO Q6H PRN tablet 11/05/19 Docusate Sodium [Colace -] 100 mg PO TID #0 capsule 11/05/19 Lidocaine 5% Patch [Lidoderm -] 1 patch TP DAILY patch 11/05/19 Lidocaine Patch Removal [Lidoderm Patch Removal] 1 each MC DAILY@2200 each 06/17 Magnesium Hydrox 2400MG/30Ml [Milk of Magnesia -] 30 ml PO DAILY PRN cup Sennosides [Senna -] 1 tab PO BID tablet 11/05/19 Tamsulosin HCl [Flomax -] 0.4 mg PO DAILY@0830 #0 cap.er.24h 11/05/19 Problem List - Problems (1) Constipation Code(s): K59.00 - CONSTIPATION, UNSPECIFIED Qualifiers: Constipation type: unspecified constipation type Qualified Code(s): K59.00 - Constipation, unspecified (2) Pelvic fracture Code(s): S32.9XXA - FRACTURE OF UNSP PARTS OF LUMBOSACRAL SPINE AND PELVIS, INIT Qualifiers: Encounter type: subsequent encounter Pelvic bone location: unspecified part of pelvis Fracture type: closed Fracture alignment: nondisplaced Fracture healing: with routine healing Qualified Code(s): S32.9XXD - Fracture of unspecified parts of lumbosacral spine and pelvis, subsequent encounter for fracture with routine healing This patient is new to me today: No Emergency Visit: Yes ED Registration Date: 11/01/19 Care time: The patient presented to the Emergency Department on the above date and was hospitalized for further evaluation of their emergent condition. Critical Care patient: No - Discharge Referral Referred to [facility] Med P.C[facility] No Physician Referral: Clifford Gustafson DO (GI)
[2019-11-05] MEDS: GABAPENTIN 400 MG CAPSULE (FP) PO SCH (17:15)
[2019-11-05 21:09] VITALS: BP 128/65; PULSE 99; TEMP 98.1
[2019-11-06] MEDS ORDERED: TAMSULOSIN HCL 0.4 MG CAP PO SCH (08:30)
== END 2019-11-05 22:15 | DRG 536 ==
LOC: JER 13:13 → JERBED 18:37 → J6S 11-02 01:10
PROVIDERS: ADMIT Internal Medicine; ATTEND Internal Medicine
DX: S32.511A Fracture of superior rim of right pubis, initial encounter for closed fracture (principal); S32.018A Other fracture of first lumbar vertebra, initial encounter for closed fracture; S32.028A Other fracture of second lumbar vertebra, initial encounter for closed fracture; S32.048A Other fracture of fourth lumbar vertebra, initial encounter for closed fracture; S32.058A Other fracture of fifth lumbar vertebra, initial encounter for closed fracture; S32.591A Other specified fracture of right pubis, initial encounter for closed fracture; I10 Essential (primary) hypertension; E78.5 Hyperlipidemia, unspecified; M43.16 Spondylolisthesis, lumbar region; J44.9 Chronic obstructive pulmonary disease, unspecified; K59.09 Other constipation; F10.20 Alcohol dependence, uncomplicated; S70.12XA Contusion of left thigh, initial encounter; S70.11XA Contusion of right thigh, initial encounter; E66.9 Obesity, unspecified; Z68.28 Body mass index [BMI] 28.0-28.9, adult; I25.2 Old myocardial infarction; N40.0 Benign prostatic hyperplasia without lower urinary tract symptoms; I71.4 Abdominal aortic aneurysm, without rupture; N20.0 Calculus of kidney; D64.9 Anemia, unspecified; S93.401A Sprain of unspecified ligament of right ankle, initial encounter; N50.82 Scrotal pain; W18.39XA Other fall on same level, initial encounter; Z95.1 Presence of aortocoronary bypass graft; Y92.89 Other specified places as the place of occurrence of the external cause
CPT/HCPCS: 36415; 71045-TC-FY; 72131-TC; 72148-TC; 72170-TC-FY; 72192-TC; 73610-TC-LT-FY; 73630-TC-RT-FY; 76775-TC; 76856-TC; 76870-TC; 80048; 80053; 80076; 81003; 82248; 82607; 82728; 82746; 82962; 83540; 83550; 83735; 84466; 85025; 85044; 85610; 86850; 86900; 86901; 93005; 93010; 93306-TC; 93971-TC; 97116-GP; 97162-GP; 99284-25

== ENCOUNTER 2019-11-27 04:13 | Inpatient (IN) | payer OTHER, BC ==
--- NOTE | 2019-11-27 04:19 | PDOC ---
History of Present Illness - General Stated Complaint: LEG PAIN Time Seen by Provider: 11/27/19 04:18 History Source: Patient Exam Limitations: No Limitations - History of Present Illness Initial Comments: 11/27/19 04:19 Elias Merrill is a 74M with PMH HTN, CABG, chronic lower back pain here for worsening left leg pain. Reports that he fell a month ago, slipped on ice and fell on his butt, denies LOC or head/neck injury. Evaluated at [facility], got XR left leg, says he has no fractures. Initially had bilateral leg pain, now has pain only in left leg, described as electric shock from left hip to left knee with intermittent numbness/tingling, but able to bear weight. Has pain in lower back , takes Motrin/Tylenol for pain control, denies urinary retention. No prior spinal surgeries, had varicose vein surgery on legs. Per chart review, has R pelvic fracture, had MRI done earlier this month. Per EMS, takes metoprolol, Lovenox. Past History - Past Medical History Allergies/Adverse Reactions: Allergies Allergy/AdvReac Type Severity Reaction Status Date / Time No Known Allergies Allergy Verified 11/01/19 14:45 Home Medications: Ambulatory Orders Fluvoxamine Maleate [Luvox -] 100 mg PO BID 01/02/13 Metoprolol Succinate [Toprol XL -] 50 mg PO DAILY 01/02/13 Losartan Potassium [Cozaar -] 50 mg PO DAILY #0 01/06/13 Atorvastatin Ca [Lipitor] 20 mg PO HS 11/01/19 Clonazepam 1 mg PO TID PRN 11/01/19 Gabapentin 400 mg PO DAILY 11/01/19 Umeclidinium Brm/Vilanterol Tr [Anoro Ellipta 62.5-25 Mcg INH] 1 each IH DAILY 11/01/19 Acetaminophen [Tylenol .Regular Strength -] 650 mg PO Q6H PRN tablet 11/05/19 Docusate Sodium [Colace -] 100 mg PO TID #0 capsule 11/05/19 Lidocaine 5% Patch [Lidoderm -] 1 patch TP DAILY patch 11/05/19 Lidocaine Patch Removal [Lidoderm Patch Removal] 1 each MC DAILY@2200 each 06/17 Magnesium Hydrox 2400MG/30Ml [Milk of Magnesia -] 30 ml PO DAILY PRN cup Sennosides [Senna -] 1 tab PO BID tablet 11/05/19 Tamsulosin HCl [Flomax -] 0.4 mg PO DAILY@0830 #0 cap.er.24h 11/05/19 Cardiac Disorders: Yes COPD: Yes (EMPHYSEMA) Dementia: Yes Diabetes: No HTN: Yes Hypercholesterolemia: Yes - Surgical History Cardiac Surgery: Yes (BYPASS: 2011) - Psycho Social/Smoking Cessation Hx Smoking Status: No (QUIT 2011) Smoking History: Former smoker Have you smoked in the past 12 months: No Number of Cigarettes Smoked Daily: 0 If you are a former smoker, when did you quit?: 2012 Hx Alcohol Use: Yes (few beers a week) Drug/Substance Use Hx: No Substance Use Type: Alcohol Hx Substance Use Treatment: No Review of Systems - Review of Systems Able to Perform ROS?: Yes Constitutional: No: Symptoms Reported HEENTM: No: Symptoms Reported Respiratory: No: Cough, Orthopnea, Shortness of Breath Cardiac (ROS): No: Chest Pain, Irregular Heart Rate, Lightheadedness, Palpitations, Syncope ABD/GI: No: Constipated, Diarrhea, Nausea, Poor Appetite, Poor Fluid Intake, Vomiting : No: Burning, Dysuria, Discharge, Frequency, Flank Pain, Hematuria, Incontinence, Urgency Musculoskeletal: Yes: Back Pain, Muscle Pain. No: Muscle Weakness Integumentary: No: Symptoms Reported, Bruising Neurological: No: Headache, Numbness, Paresthesia, Weakness, Unsteady Gait, Ataxia, Dizziness Endocrine: No: Symptoms Reported Hematologic/Lymphatic: No: Symptoms Reported All Other Systems: Reviewed and Negative *Physical Exam - Physical Exam General Appearance: Yes: Nourished, Appropriately Dressed, Obese HEENT: positive: EOMI, DENISHA, Normal ENT Inspection, Normal Voice, Symmetrical, Pharynx Normal, Hearing Grossly Normal. negative: Scleral Icterus (R), Scleral Icterus (L), Pharyngeal Erythema, Tonsillar Exudate, Tonsillar Erythema Neck: positive: Trachea midline, Normal Thyroid, Supple. negative: Tender, Rigid, Decreased range of motion, Lymphadenopathy (R), Lymphadenopathy (L), Tender lateral, Tender midline Respiratory/Chest: positive: Lungs Clear, Normal Breath Sounds. negative: Chest Tender, Respiratory Distress, Accessory Muscle Use, Crackles, Rales, Rhonchi, Stridor, Wheezing Cardiovascular: positive: Regular Rhythm, Regular Rate. negative: Murmur Gastrointestinal/Abdominal: positive: Normal Bowel Sounds, Flat, Soft, Protuberent. negative: Tender, Pulsatile Mass, Guarding, Rebound Musculoskeletal: positive: Normal Inspection. negative: CVA Tenderness, Decreased Range of Motion, Vertebral Tenderness (non-tender to lumbar spine, no step-offs or deformities noted) Extremity: positive: Normal Capillary Refill, Normal Range of Motion, Tender ( left anterior hip), Pelvis Stable, Pedal Edema (3+), Swelling (3+), Other (BLE: no sensory deficits to LT, 5/5 motor, full ROM to hip/knee/ankle, moving all muscle groups spontanesouly, bearing weight on both legs, no saddle anesthesia) . negative: Cyanosis Integumentary: positive: Normal Color, Dry, Warm Neurologic: positive: hiv/aids care nurse II-XII NML intact, Fully Oriented, Alert, Normal Mood/ Affect, Normal Response, Motor Strength 5/5. negative: Numbness Deep Tendon Reflexes: Knee (L): 2+, Knee (R): 2+ ED Treatment Course - LABORATORY CBC & Chemistry Diagram: 11/27/19 05:00 11/27/19 05:00 Medical Decision Making - Medical Decision Making 11/27/19 05:13 Patient presents with left leg pain in the setting of fall one month ago, known R pelvic fracture. Also reports weakness yesterday, swelling in both lower extremities, has 2x CABG, concerned for CHF exacerbation. Ddx for leg pain includes MSK, sciatica. No evidence of bony fracture or deformity on exam. No significant neuro deficits. - CMP/CBC - BNP/CXR for eval CHF - ECG - Coags - CT lumbar/pelvis for eval disc herniation or fracture Prior MRI: L2. Osteoporotic acute compression fracture of L2 vertebral body is noted, with bone marrow edema on T1, T2 STIR sequences. Mild retropulsion of the superior posterior cortex of L2 vertebral body is noted. No evidence of central spinal canal stenosis. No compression of the neural structure traversing through the neural foramina. Loss of vertical height of L2 in relation to L3 of approximately 70%. Chronic compression fracture of L1 vertebral body with vertebral plana, retropulsion of the superior posterior corner L1. Central spinal canal stenosis. 11/27/19 06:11 ECG shows HR 71, QRS 136, QTc 565, has RBBB with PVCs, TWI in III, otherwise no other ischemic changes, highly consistent with priors 11/27/19 06:14 Labs notable for: - CBC WNL - AP 142, not concerning at this time - BNP 2130, consistent with new onset CHF, giving 20mg IV Lasix 11/27/19 07:[address] Felix, plan for admission to [facility] for new onset CHF exacerbation/cardiac evaluation and lumbar MRI. F/U CT and CXR. Discharge - Discharge Information Problems reviewed: Yes Clinical Impression/Diagnosis: Left leg pain Condition: Stable Disposition: HOME - Follow up/Referral - Patient Discharge Instructions - Post Discharge Activity
--- NOTE | 2019-11-27 04:40 | PDOC ---
Attending Attestation - Resident Resident Name: Ludwig Whelan - ED Attending Attestation I have performed the following: I have examined & evaluated the patient, The case was reviewed & discussed with the resident, I agree w/resident's findings & plan - HPI HPI: 12/03/19 23:23 see resident hpi - Physicial Exam PE: 12/03/19 23:23 see resident exam - Medical Decision Making 12/03/19 23:23 74-year-old male status post fall with pain radiating to the leg Case signed out to oncoming team to follow-up CT scan, possible new onset CHF Plan for admission for further evaluation/management and probable MRI
[2019-11-27] MEDS ORDERED: ACETAMINOPHEN 1000 MG/100 ML VIAL (NON FORMULARY) IVPB ONE (04:45)
[2019-11-27 05:33] LABS: BASO % 0.6 % (0-2.0); EOS % 1.7 % (0-4.5); HEMATOCRIT 35.6 % (35.4-49); HEMOGLOBIN 11.9 GM/dL (11.7-16.9); MCH 32.3 pg (25.7-33.7); MCHC 33.5 g/dl (32.0-35.9); MEAN CELL VOLUME 96.4 fl (80-96); MEAN PLT VOLUME 8.6 fl (7.5-11.1); MONO % 10.8 % (3.8-10.2); NEUT % 75.9 % (42.8-82.8); PLATELET COUNT 164 K/MM3 (134-434); RDW 14.7 % (11.9-15.9)
[2019-11-27] MEDS ORDERED: ACETAMINOPHEN INJECTION 100 ML IVPB ONE (05:43)
[2019-11-27 06:00] LABS: ALBUMIN 3.7 g/dl (3.4-5.0); BILIRUBIN,TOTAL 0.7 mg/dL (0.2-1); BLOOD UREA NITROGEN 13.6 mg/dL (7-18); CREATININE 0.8 mg/dL (0.55-1.3); POTASSIUM 3.6 mmol/L (3.5-5.1); TOT PROT 6.8 g/dl (6.4-8.2)
[2019-11-27 06:45] LABS: INR 1.13 (0.83-1.09); PROTHROMBIN TIME (PATIENT) 13.3 SEC (9.7-13.0)
[2019-11-27 06:48] LABS: ACTIVATED PTT 34.2 SECONDS (25.2-36.5)
[2019-11-27] MEDS ORDERED: FUROSEMIDE 40 MG/4 ML INJECTABLE VIAL IVPUSH ONE (07:00)
--- NOTE | 2019-11-27 07:12 | PDOC ---
*Physical Exam - Vital Signs Last Vital Signs Temp Pulse Resp BP Pulse Ox 97.9 F 72 18 155/96 95 11/27/19 04:57 11/27/19 04:57 11/27/19 04:57 11/27/19 04:57 11/27/19 06:56 ED Treatment Course - LABORATORY CBC & Chemistry Diagram: 11/27/19 05:00 11/27/19 05:00 - ADDITIONAL ORDERS Additional order review: Laboratory Results 11/27/19 11/27/19 11/27/19 05:00 05:00 05:00 PT with INR 13.30 H INR 1.13 H PTT (Actin FS) 34.2 Sodium 140 Potassium 3.6 Chloride 108 H Carbon Dioxide 23 Anion Gap 10 BUN 13.6 Creatinine 0.8 Est GFR (CKD-EPI)AfAm 100.57 Est GFR (CKD-EPI)NonAf 86.77 Random Glucose 98 Calcium 9.0 Total Bilirubin 0.7 AST 19 ALT 19 Alkaline Phosphatase 142 H B-Natriuretic Peptide 2130.9 H Total Protein 6.8 Albumin 3.7 11/27/19 05:00 RBC 3.70 L MCV 96.4 H MCHC 33.5 RDW 14.7 MPV 8.6 Neutrophils % 75.9 Lymphocytes % 11.0 D Monocytes % 10.8 H Eosinophils % 1.7 Basophils % 0.6 - Medications Given in the ED: ED Medications Discontinued Medications Generic Name Dose Route Start Last Admin Trade Name Freq PRN Reason Stop Dose Admin Acetaminophen 1,000 mg 11/27/19 04:45 11/27/19 06:15 Ofirmev Injection - IVPB 11/27/19 04:46 1,000 mg ONCE ONE Administration Medical Decision Making - Medical Decision Making 11/27/19 07:11 ECG shows HR 71, QRS 136, QTc 565, has RBBB with PVCs, TWI in III, otherwise no other ischemic changes, unchanged CXR - cardiomegaly, no acute processes CT lumbar/pelvis confirms previous L1/2 compression fractures BLE duplex US - no DVT --- Signed out from night team 74M with PMH HTN, CABG, chronic lower back pain, recent L1/2 compression fx, R pelvic fracture s/p fall (1mo ago) here for worsening left leg pain and BLE edema d/t MSK pain vs sciatica and new onset CHF exacerbation (BLE swelling, elevated BNP 2100). Low concern for spinal stenosis, cauda equina (no bowel/ bladder dysfunction, no LE neuro deficits) vs DVT (negative duplex). Pt cannot walk more than a few steps d/t pain Given tylenol, toradol, [address] Romo for new onset CHF exacerbation and left leg pain (MSK strain vs sciatica) requiring pain control and PT Discharge - Discharge Information Problems reviewed: Yes Clinical Impression/Diagnosis: Left leg pain CHF exacerbation Qualifiers: Heart failure type: unspecified Qualified Code(s): I50.9 - Heart failure, unspecified Condition: Improved - Follow up/Referral - Patient Discharge Instructions - Post Discharge Activity
[2019-11-27] MEDS ORDERED: KETOROLAC TROMETHAMINE 30 MG/1 ML VIAL IVPUSH ONE (07:21)
[2019-11-27] MEDS ORDERED: ALBUTEROL SO4 2.5/IPRATROPIUM 0.5 INH SOL 3 ML VIAL.NEB. NEB ONE ×2 (07:33→07:39)
[2019-11-27] MEDS ORDERED: KETOROLAC TROMETHAMINE 30 MG/1 ML VIAL ONE (07:39)
[2019-11-27] MEDS ORDERED: FUROSEMIDE 40 MG/4 ML INJECTABLE VIAL ONE (07:40)
--- NOTE | 2019-11-27 07:48 | PDOC ---
*Physical Exam - Vital Signs Last Vital Signs Temp Pulse Resp BP Pulse Ox 97.9 F 72 18 155/96 95 11/27/19 04:57 11/27/19 04:57 11/27/19 04:57 11/27/19 04:57 11/27/19 06:56 - Physical Exam 11/27/19 07:43 awake alert lungs end expiratory wheezing, heart rrr no mrg abd soft nt ext bilat pitting edema. 2 + 2+ dp/ pt pulses bilat . alert oriented x 3. ED Treatment Course - LABORATORY CBC & Chemistry Diagram: 11/27/19 05:00 11/27/19 05:00 - ADDITIONAL ORDERS Additional order review: Laboratory Results 11/27/19 11/27/19 11/27/19 05:00 05:00 05:00 PT with INR 13.30 H INR 1.13 H PTT (Actin FS) 34.2 Sodium 140 Potassium 3.6 Chloride 108 H Carbon Dioxide 23 Anion Gap 10 BUN 13.6 Creatinine 0.8 Est GFR (CKD-EPI)AfAm 100.57 Est GFR (CKD-EPI)NonAf 86.77 Random Glucose 98 Calcium 9.0 Total Bilirubin 0.7 AST 19 ALT 19 Alkaline Phosphatase 142 H B-Natriuretic Peptide 2130.9 H Total Protein 6.8 Albumin 3.7 11/27/19 05:00 RBC 3.70 L MCV 96.4 H MCHC 33.5 RDW 14.7 MPV 8.6 Neutrophils % 75.9 Lymphocytes % 11.0 D Monocytes % 10.8 H Eosinophils % 1.7 Basophils % 0.6 - Medications Given in the ED: ED Medications Discontinued Medications Generic Name Dose Route Start Last Admin Trade Name Kelsea PRN Reason Stop Dose Admin Acetaminophen 1,000 mg 11/27/19 04:45 11/27/19 06:15 Ofirmev Injection - IVPB 11/27/19 04:46 1,000 mg ONCE ONE Administration Medical Decision Making - Medical Decision Making 11/27/19 07:44 74 yo male h/o CABG HTN HLD CAD recently here for pubic rammi fx s/p slip and fall 2 weeks ago, sent to rehab with known compression fx, and pubic rami fx, here today c/o pain in his left leg. shooting down his left leg. denies new falls or weakness. no new bowel or bladder incontinence. pt states he is at home currently. lives with his who is currently in the hospital. no f/c no cough. denies sob or orthopnea. does have leg swelling which has been present on prior admission. pt signed out to me by overnight team, assumed care of pt at 7 am. per chart review, pt had echo on last admission earlier this month good LV function mild TR. will treat pt for copd with duoneb here in ED. doppler added to workkup to r/;o DVT due to worsening leg pain and recent hospitalization r/o dvt. awaiting repeat ct lumbar spine to r/o fracture component causing impingement. Discharge - Discharge Information Problems reviewed: Yes Clinical Impression/Diagnosis: Left leg pain CHF exacerbation Qualifiers: Heart failure type: unspecified Qualified Code(s): I50.9 - Heart failure, unspecified Condition: Improved - Follow up/Referral - Patient Discharge Instructions - Post Discharge Activity
--- NOTE | 2019-11-27 12:39 | EKG ---
Test Reason : Blood Pressure : / mmHG Vent. Rate : 071 BPM Atrial Rate : 071 BPM P-R Int : 146 ms QRS Dur : 136 ms QT Int : 520 ms P-R-T Axes : 055 006 011 degrees QTc Int : 565 ms POOR DATA QUALITY, INTERPRETATION MAY BE ADVERSELY AFFECTED SINUS RHYTHM WITH OCCASIONAL PREMATURE VENTRICULAR COMPLEXES RIGHT BUNDLE BRANCH BLOCK ABNORMAL ECG WHEN COMPARED WITH ECG OF 01-NOV-2019 23:21, PREMATURE VENTRICULAR COMPLEXES ARE NOW PRESENT VENT. RATE HAS DECREASED BY 37 BPM QT HAS LENGTHENED Confirmed by DANIEL ROJAS MD ([id number]) on 11/27/2019 12:39:24 PM Referred By: Confirmed By:DANIEL ROJAS MD
[2019-11-27] MEDS ORDERED: clonazePAM 0.5 MG TABLET PO PRN (13:32)
[2019-11-27] MEDS ORDERED: MAGNESIUM HYDROX 2400MG/30ML ORAL SUSPENSION 30 ML CUP PO PRN (13:32)
--- NOTE | 2019-11-27 13:37 | CON.CARD ---
Consult Consult Specialty:: Cardiology Referred by:: Hospitalist, Russell Weinstein primary, Wayne Gilbert cardiology Reason for Consultation:: Bilateral LE edema and dyspnea - History of Present Illness Chief Complaint: Bilateral LE edema and dyspnea History of Present Illness: Patient is a 74 year old man with a PMH of Dementia, CAD AL s/p CABG, HTN, HLD and COPD, OSAS not adherent to cpap, pubic rammi fx s/p slip and fall given PT reports progressive swelling of legs (L>R), left leg pain, large ecchymosis over right medial thigh and scrotum. Denies using blood thinners and did not fall since. Took ibuprofen 600mg q 5hr for past 6d for pain. Also has constipation with abdominal swelling - last BM 4 days ago. Denies headache, nausea, vomiting, chest pain, SOB or urinary changes. Denies alcohol, tobacco or illicit drug use. - History Source History Provided By: Patient Limitations to Obtaining History: No Limitations - Past Medical History Musculoskeletal: Yes: Chronic low back pain, Osteoarthritis, Other - Past Surgical History Past Surgical History: Yes: None - Alcohol/Substance Use Hx Alcohol Use: Yes (few beers a week) - Smoking History Smoking history: Former smoker Have you smoked in the past 12 months: No Aproximately how many cigarettes per day: 0 If you are a former smoker, when did you quit?: 2011 - Social History Usual Living Arrangement: With Significant Other Home Medications - Allergies Allergies/Adverse Reactions: Allergies Allergy/AdvReac Type Severity Reaction Status Date / Time No Known Allergies Allergy Verified 11/01/19 14:45 - Home Medications Home Medications: Ambulatory Orders Fluvoxamine Maleate [Luvox -] 100 mg PO BID 01/02/13 Metoprolol Succinate [Toprol XL -] 50 mg PO DAILY 01/02/13 Losartan Potassium [Cozaar -] 50 mg PO DAILY #0 01/06/13 Atorvastatin Ca [Lipitor] 20 mg PO HS 11/01/19 Clonazepam 1 mg PO TID PRN 11/01/19 Gabapentin 400 mg PO DAILY 11/01/19 Umeclidinium Brm/Vilanterol Tr [Anoro Ellipta 62.5-25 Mcg INH] 1 each IH DAILY 11/01/19 Acetaminophen [Tylenol .Regular Strength -] 650 mg PO Q6H PRN tablet 01/08/20 Docusate Sodium [Colace -] 100 mg PO TID #0 capsule 11/05/19 Lidocaine 5% Patch [Lidoderm -] 1 patch TP DAILY patch 11/05/19 Lidocaine Patch Removal [Lidoderm Patch Removal] 1 each MC DAILY@2200 each 06/17 Magnesium Hydrox 2400MG/30Ml [Milk of Magnesia -] 30 ml PO DAILY PRN cup Sennosides [Senna -] 1 tab PO BID tablet 11/05/19 Tamsulosin HCl [Flomax -] 0.4 mg PO DAILY@0830 #0 cap.er.24h 11/05/19 Vital Signs: Vital Signs Temperature 97.8 F 11/27/19 12:00 Pulse Rate 68 11/27/19 12:00 Respiratory Rate 19 11/27/19 12:00 Blood Pressure 148/93 11/27/19 12:00 O2 Sat by Pulse Oximetry (%) 100 11/27/19 11:26 Constitutional: Yes: No Distress, Calm Neck: Yes: Supple Respiratory: Yes: Regular, CTA Bilaterally Gastrointestinal: Yes: Normal Bowel Sounds, Soft, Abdomen, Obese Cardiovascular: Yes: Regular Rate and Rhythm JVD: No Carotid Bruit: No Heart Sounds: Yes: S1, S2 Murmur: Yes: Systolic Murmur, Grade 1 Edema: Yes Edema: LLE: 2+, RLE: 2+ - Other Data Labs, Other Data: CBC, BMP 11/27/19 05:00 11/27/19 05:00 INR, PTT INR 1.13 (0.83-1.09) H 11/27/19 05:00 Troponin, BNP 11/27/19 05:00 B-Natriuretic Peptide 2130.9 H Troponin, BNP 11/27/19 05:00 B-Natriuretic Peptide 2130.9 H NSR @ 71 occ PVC RBBB Ejection Fraction %: LVEF > or = 40 % Imaging - Results Chest X-ray: Report Reviewed (NAD) Problem List - Problems (1) S/P CABG (coronary artery bypass graft) Code(s): Z95.1 - PRESENCE OF AORTOCORONARY BYPASS GRAFT (2) PVC (premature ventricular contraction) Code(s): I49.3 - VENTRICULAR PREMATURE DEPOLARIZATION (3) Hyperlipidemia Code(s): E78.5 - HYPERLIPIDEMIA, UNSPECIFIED Qualifiers: Hyperlipidemia type: pure hypercholesterolemia Qualified Code(s): E78.00 - Pure hypercholesterolemia, unspecified; E78.0 - Pure hypercholesterolemia (4) Hypertension Code(s): I10 - ESSENTIAL (PRIMARY) HYPERTENSION Qualifiers: Hypertension type: essential hypertension Qualified Code(s): I10 - Essential (primary) hypertension (5) CHF exacerbation Code(s): I50.9 - HEART FAILURE, UNSPECIFIED Qualifiers: Heart failure type: diastolic Qualified Code(s): I50.33 - Acute on chronic diastolic (congestive) heart failure (6) Left leg pain Code(s): M79.605 - PAIN IN LEFT LEG Assessment/Plan 11/27/2019 Echo: Normal LV and RV size and fxn, tr TR 01/10/2018 Stress echo: Mildly dilated, mild cLVH, normal LV fxn, 5 min 82 % MPHR 1. Acute on chronic diastolic heart failure 2. CAD s/p CABG post AL (GARCIA->OM, SVG->PDA 01/19/12) 3. COPD 4. OSAS noncompliant on cpap 5. Hypertension 6. Hyperlipidemia 7. pubic fractures, subacute and chronic compression fractures in L1/L2 8. Palpitations 9. 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 IV diuresis with monitor diuretic response, renal fxn and electrolytes 2. Repeat Echo also techincally difficult to read, but shows grossly normal LV function, trace TR 3. Continue ASA 81 qd, Lipitor 20 qd, losartan 50 qd, Toprol XL 50 qd, analgesia as needed 4. BD as needed, cpap nightly 5. Patient f/u with Dr. Wayne Gilbert [facility] for cardiology 6. Thank you for consultative opportunity
--- NOTE | 2019-11-27 13:42 | HP ---
CHIEF COMPLAINT: Lower extremity swelling and pain PCP: Dr. Weinstein HISTORY OF PRESENT ILLNESS: Pt. is a 74 y.o. M w/ PMHx. of CAD/LA (s/p CABG 7 years prior), HTN, HLD, COPD (not on home O2), CORKY (non-adherent to CPAP) and pubic fractures presents for lower extremity swelling and intermittent pain. Pt. was admitted earlier this month and discharged because of a fall that resulted in pubic fractures treated with a back brace. Pt. was started on Tamsulosin at that time as well for difficulty urinating. Pt. stated that he did not follow up with any of the physicians recommended on discharge. Pt. states that currently the pain in his leg is 0/10 however when he stretched over the contralateral side in extremis his pain goes to 10/10. The pain radiates from the knee to the hip and feels like an electric shock. Pt. endorses left leg weakness. Pt. denies any numbness/tingling, dysuria, difficulty urinating, numbness of the groin, or constipation. Pt. denies any fever, shortness of breath, cough (other than his intermittent baseline "COPD cough") or chest pain. Pt. states that he lives at home with his however she is in a rehab facility and her [employer] service has since been discontinued. Pt. states that his lower extremity swelling has been getting worse over the last 2 months. Pt. had recent echo here at the beginning of the month which showed normal LV fxn however it was a limited study. Pt. had a colonoscopy last year which was negative. Pt. received his Flu vaccine. Pt. normally ambulates with a walker. ER course was notable for: (1)EKG, 20mh Lasix, CBC, CMP, BNP (2) Lumbar and Pelvi CT (3) Recent Travel: No PAST MEDICAL HISTORY: As above PAST SURGICAL HISTORY:Tonsillectomy, L. Shoulder Sx., CABG Social History: Smoking: "Quit smoking many years ago" Alcohol: Occasional beer Drugs: Denies, per chart review uses Benzos. Allergies No Known Allergies Allergy (Verified 11/01/19 14:45) HOME MEDICATIONS: Home Medications Medication Instructions Recorded Fluvoxamine Maleate [Luvox -] 100 mg PO BID 01/02/13 Metoprolol Succinate [Toprol XL -] 50 mg PO DAILY 01/02/13 Losartan Potassium [Cozaar -] 50 mg PO DAILY #0 01/06/13 Atorvastatin Ca [Lipitor] 20 mg PO HS 11/01/19 Clonazepam 1 mg PO TID PRN 11/01/19 Gabapentin 400 mg PO DAILY 11/01/19 Umeclidinium Brm/Vilanterol Tr 1 each IH DAILY 11/01/19 [Anoro Ellipta 62.5-25 Mcg INH] Acetaminophen [Tylenol .Regular 650 mg PO Q6H PRN tablet 11/05/19 Strength -] Docusate Sodium [Colace -] 100 mg PO TID #0 capsule 11/05/19 Lidocaine 5% Patch [Lidoderm -] 1 patch TP DAILY patch 11/05/19 Lidocaine Patch Removal [Lidoderm 1 each MC DAILY@2200 each 11/05/19 Patch Removal] Magnesium Hydrox 2400MG/30Ml [Milk 30 ml PO DAILY PRN cup 11/05/19 of Magnesia -] Sennosides [Senna -] 1 tab PO BID tablet 11/05/19 Tamsulosin HCl [Flomax -] 0.4 mg PO DAILY@0830 #0 cap.er.24h 11/05/19 REVIEW OF SYSTEMS As above PHYSICAL EXAMINATION Vital Signs - 24 hr 11/27/19 11/27/19 11/27/19 04:57 06:56 11:26 Temperature 97.9 F 97.8 F Pulse Rate 72 Pulse Rate [ 79 Apical] Respiratory 18 19 Rate Blood Pressure 155/96 Blood Pressure 144/65 [Left Arm] O2 Sat by Pulse 95 95 100 Oximetry (%) 11/27/19 12:00 Temperature 97.8 F Pulse Rate 68 Pulse Rate [ Apical] Respiratory 19 Rate Blood Pressure 148/93 Blood Pressure [Left Arm] O2 Sat by Pulse Oximetry (%) GENERAL: Awake, alert, and fully oriented, in no acute distress. HEAD: Normal with no signs of trauma. EYES: Pupils equal, round and reactive to light, extraocular movements intact, sclera anicteric, conjunctiva clear. No lid lag. EARS, NOSE, THROAT: Ears normal, nares patent, oropharynx clear without exudates. Poor dentition. Moist mucous membranes. NECK: Normal range of motion, supple without lymphadenopathy, JVD, or masses. LUNGS: Faint bibasilar crackles. No accessory muscle use. HEART: Regular rate and rhythm, normal S1 and S2 without murmur ABDOMEN: Soft, nontender, not distended, normoactive bowel sounds, no guarding, no rebound, no masses. MUSCULOSKELETAL: Normal range of motion at all joints. No bony deformities or tenderness on spinal exam. No CVA tenderness. UPPER EXTREMITIES: 2+ radial pulses, warm, well-perfused. No cyanosis. No clubbing. LOWER EXTREMITIES: 2+ dorsal pedal pulses, warm, well-perfused. No calf tenderness. 3+ pitting edema. NEUROLOGICAL: Normal speech. Favors left leg on gait. Sensation grossly intact. PSYCHIATRIC: Cooperative. Good eye contact. Appropriate mood and affect. SKIN: Warm, dry Laboratory Results - last 24 hr 11/27/19 11/27/19 11/27/19 05:00 05:00 05:00 WBC 6.0 RBC 3.70 L Hgb 11.9 Hct 35.6 MCV 96.4 H MCH 32.3 MCHC 33.5 RDW 14.7 Plt Count 164 D MPV 8.6 Absolute Neuts (auto) 4.5 Neutrophils % 75.9 Lymphocytes % 11.0 D Monocytes % 10.8 H Eosinophils % 1.7 Basophils % 0.6 Nucleated RBC % 0 PT with INR INR PTT (Actin FS) Sodium 140 Potassium 3.6 Chloride 108 H Carbon Dioxide 23 Anion Gap 10 BUN 13.6 Creatinine 0.8 Est GFR (CKD-EPI)AfAm 100.57 Est GFR (CKD-EPI)NonAf 86.77 Random Glucose 98 Calcium 9.0 Total Bilirubin 0.7 AST 19 ALT 19 Alkaline Phosphatase 142 H B-Natriuretic Peptide 2130.9 H Total Protein 6.8 Albumin 3.7 11/27/19 05:00 WBC RBC Hgb Hct MCV MCH MCHC RDW Plt Count MPV Absolute Neuts (auto) Neutrophils % Lymphocytes % Monocytes % Eosinophils % Basophils % Nucleated RBC % PT with INR 13.30 H INR 1.13 H PTT (Actin FS) 34.2 Sodium Potassium Chloride Carbon Dioxide Anion Gap BUN Creatinine Est GFR (CKD-EPI)AfAm Est GFR (CKD-EPI)NonAf Random Glucose Calcium Total Bilirubin AST ALT Alkaline Phosphatase B-Natriuretic Peptide Total Protein Albumin ASSESSMENT/PLAN: Pt. is a 74 y.o. M w/ PMHx. of CAD/LA (s/p CABG 7 years prior), HTN, HLD, COPD (not on home O2), CORKY (non-adherent to CPAP) and pubic fractures presents for lower extremity swelling and intermittent pain. #Left lower extremity Pain c/w Lidocaine Patch Pelvic and Lumbar CT shows old known fractures, no new fractures, no evidence of cord impingement. c/w PLSO brace c/w Tylenol for pain management c/w Gabapentin B/l LE Duplex shows no DVTs Physical Therapy Consult to Dr. Childers Neurosurgery appreciated #B/L Lower extremity edema 2/2 to Venous Insufficiency vs. CHF Echo (11/03/19): normal LV fxn, mild TR, borderline root dilatation but limited study because of poor acoustic window f/u Rpt. Echo Cardiology consult to Dr. Villaseñor appreciated BNP: 2130 CXR: No acute pathology, no change since 11/03/2019 will treat with TEDs/SCDs and leg elevation #CAD/LA #HTN #HLD #COPD #CORKY c/w home medications #FEN no IVF, encourage PO intake, 2L restriction monitor electrolytes and replete as needed Sodium restricted Diet #DVT Ppx. SCDs TEDs Hep SQ Visit type - Emergency Visit Emergency Visit: Yes ED Registration Date: 11/27/19 Care time: The patient presented to the Emergency Department on the above date and was hospitalized for further evaluation of their emergent condition. - New Patient This patient is new to me today: Yes Date on this admission: 11/27/19 - Critical Care Critical Care patient: No ATTENDING PHYSICIAN STATEMENT I saw and evaluated the patient. I reviewed the resident's note and discussed the case with the resident. I agree with the resident's findings and plan as documented. SUBJECTIVE: OBJECTIVE: ASSESSMENT AND PLAN:
--- NOTE | 2019-11-27 15:26 | ECHO ---
Name: HOWIE MELENDEZ Exam:Adult Echocardiogram Study Date: 11/27/2019 01:49 PM Age: 74 yrs Reason For Study: eval chf Height: 65 in Weight: 190 lb BSA: 1.9 m2 MMode/2D Measurements & Calculations IVSd: 1.3 cm Ao root diam: 3.9 cm LVIDd: 4.0 cm LA dimension: 4.2 cm LVIDs: 2.9 cm LVPWd: 1.5 cm LVPWs: 1.6 cm EDV(Teich): 70.5 ml ESV(Teich): 31.5 ml LVOT diam: 2.0 cm LAV (MOD-bp): 86.0 ml RV S Rafy: 13.6 cm/sec Doppler Measurements & Calculations MV E max rafy: 75.5 cm/sec Ao V2 max: 115.3 cm/sec MV A max rafy: 34.6 cm/sec Ao max P.3 mmHg MV E/A: 2.2 ARPITA(V,D): 3.1 cm2 MV dec time: 0.13 sec LV V1 max P.8 mmHg PA V2 max: 96.1 cm/sec LV V1 max: 110.1 cm/sec PA max P.7 mmHg Med Peak E' Rafy: 6.0 cm/sec Med E/e': 12.5 Lat Peak E' Rafy: 10.2 cm/sec Lat E/e': 7.4 Procedure A complete two-dimensional transthoracic echocardiogram was performed (2D, M-mode, Doppler and color flow Doppler). The study was technically difficult with many images being suboptimal in quality. Left Ventricle The left ventricular size, thickness and function are normal. The left ventricular ejection fraction is normal. Ejection Fraction = 60-65%. The left ventricular wall motion is normal. Right Ventricle The right ventricle is normal in size and function. Atria Normal left and right atrial size and function. Mitral Valve There is no mitral regurgitation noted. Tricuspid Valve There is trace tricuspid regurgitation. There was insufficient TR detected to calculate RV systolic p ressure. Aortic Valve No hemodynamically significant valvular aortic stenosis. No aortic regurgitation is present. Pulmonic Valve There is no pulmonic valvular regurgitation. Great Vessels Mild aortic root dilatation. Pericardium/Pleura There is no pericardial effusion. Interpretation Summary The study was technically difficult with many images being suboptimal in quality. The left ventricular size, thickness and function are normal The right ventricle is normal in size and function. There is trace tricuspid regurgitation. Mild aortic root dilatation. MD Leonel Bolanos 11/27/2019 03:26 PM
--- NOTE | 2019-11-27 15:52 | PN ---
Teaching Attending Note Name of Resident: David Pelletier ATTENDING PHYSICIAN STATEMENT I saw and evaluated the patient. I reviewed the resident's note and discussed the case with the resident. I agree with the resident's findings and plan as documented. 74 m h/o CAD/KS (s/p CABG 7 years ago), HTN, HLD, COPD (not on home O2), BPH, depression, CORKY (non-adherent to CPAP) and pubic fractures presents for lower extremity swelling and intermittent L leg/hip pain. Patient endorses having trouble "getting around" the house due to L hip and leg pain when he tries to "reach for something", denies recurrent falls. But was admitted few weeks back for R sup ramus fx, treated w. conservative measures. Since discharge patient hasnt followed up with any doctor, now taking care of himself alone due to being in the hospital, finds it harder to take care for himself d/t no help. Patient to be admitted for CHFE and L leg pain. PE GA comfortable, AAox3, sitting upright, NAD HEENT NC/AT, EOMI, neck supple, trachea midline Chest good air entry b/l, faint bibasilar crackles CVS S1, S2+, RRR, no m/r/g Abd Soft, NT, ND, BS+, no guarding Ext 3+ pitting edema LE b/l, no calf tenderness Vital Signs - 24 hr 11/27/19 11/27/19 11/27/19 04:57 06:56 11:26 Temperature 97.9 F 97.8 F Pulse Rate 72 Pulse Rate [ 79 Apical] Respiratory 18 19 Rate Blood Pressure 155/96 Blood Pressure 144/65 [Left Arm] O2 Sat by Pulse 95 95 100 Oximetry (%) 11/27/19 12:00 Temperature 97.8 F Pulse Rate 68 Pulse Rate [ Apical] Respiratory 19 Rate Blood Pressure 148/93 Blood Pressure [Left Arm] O2 Sat by Pulse 94 L Oximetry (%) Laboratory Tests 11/27/19 11/27/19 11/27/19 05:00 05:00 05:00 WBC 6.0 RBC 3.70 L Hgb 11.9 Hct 35.6 MCV 96.4 H MCH 32.3 MCHC 33.5 RDW 14.7 Plt Count 164 D MPV 8.6 Absolute Neuts (auto) 4.5 Neutrophils % 75.9 Lymphocytes % 11.0 D Monocytes % 10.8 H Eosinophils % 1.7 Basophils % 0.6 Nucleated RBC % 0 PT with INR INR PTT (Actin FS) Sodium 140 Potassium 3.6 Chloride 108 H Carbon Dioxide 23 Anion Gap 10 BUN 13.6 Creatinine 0.8 Est GFR (CKD-EPI)AfAm 100.57 Est GFR (CKD-EPI)NonAf 86.77 Random Glucose 98 Calcium 9.0 Total Bilirubin 0.7 AST 19 ALT 19 Alkaline Phosphatase 142 H B-Natriuretic Peptide 2130.9 H Total Protein 6.8 Albumin 3.7 11/27/19 05:00 WBC RBC Hgb Hct MCV MCH MCHC RDW Plt Count MPV Absolute Neuts (auto) Neutrophils % Lymphocytes % Monocytes % Eosinophils % Basophils % Nucleated RBC % PT with INR 13.30 H INR 1.13 H PTT (Actin FS) 34.2 Sodium Potassium Chloride Carbon Dioxide Anion Gap BUN Creatinine Est GFR (CKD-EPI)AfAm Est GFR (CKD-EPI)NonAf Random Glucose Calcium Total Bilirubin AST ALT Alkaline Phosphatase B-Natriuretic Peptide Total Protein Albumin Home Medications Medication Instructions Recorded Fluvoxamine Maleate [Luvox -] 100 mg PO BID 01/02/13 Metoprolol Succinate [Toprol XL -] 50 mg PO DAILY 01/02/13 Losartan Potassium [Cozaar -] 50 mg PO DAILY #0 01/06/13 Atorvastatin Ca [Lipitor] 20 mg PO HS 11/01/19 Clonazepam 1 mg PO TID PRN 11/01/19 Gabapentin 400 mg PO DAILY 11/01/19 Umeclidinium Brm/Vilanterol Tr 1 each IH DAILY 11/01/19 [Anoro Ellipta 62.5-25 Mcg INH] Acetaminophen [Tylenol .Regular 650 mg PO Q6H PRN tablet 11/05/19 Strength -] Docusate Sodium [Colace -] 100 mg PO TID #0 capsule 11/05/19 Lidocaine 5% Patch [Lidoderm -] 1 patch TP DAILY patch 11/05/19 Lidocaine Patch Removal [Lidoderm 1 each MC DAILY@2200 each 11/05/19 Patch Removal] Magnesium Hydrox 2400MG/30Ml [Milk 30 ml PO DAILY PRN cup 11/05/19 of Magnesia -] Sennosides [Senna -] 1 tab PO BID tablet 11/05/19 Tamsulosin HCl [Flomax -] 0.4 mg PO DAILY@0830 #0 cap.er.24h 11/05/19 Current Medications Generic Name Dose Route Start Last Admin Trade Name Freq PRN Reason Stop Dose Admin Acetaminophen 650 mg 11/27/19 13:32 Tylenol - PO Q6H PRN PAIN LEVEL 1-5 Atorvastatin Calcium 20 mg 11/27/19 22:00 Lipitor - PO HS [facility] Clonazepam 1 mg 11/27/19 13:32 Klonopin - PO TID PRN ANXIETY Docusate Sodium 100 mg 11/27/19 14:00 Colace - PO TID PAPI Fluvoxamine Maleate 100 mg 11/27/19 22:00 Luvox - PO BID [facility] Gabapentin 400 mg 11/28/19 10:00 Neurontin - PO DAILY [facility] Heparin Sodium (Porcine) 5,000 unit 11/27/19 22:00 Heparin - SQ TID [facility] Lidocaine 1 patch 11/28/19 10:00 Lidoderm Patch - TP DAILY [facility] Losartan Potassium 50 mg 11/28/19 10:00 Cozaar - PO DAILY [facility] Magnesium Hydroxide 30 ml 11/27/19 13:32 Milk Of Magnesia - PO DAILY PRN CONSTIPATION Metoprolol Succinate 50 mg 11/28/19 10:00 Toprol Xl - PO DAILY [facility] Miscellaneous 1 each 11/27/19 22:00 Lidoderm Patch Removal MC DAILY@2200 [facility] Senna 1 tab 11/27/19 22:00 Senna - PO BID [facility] Tamsulosin HCl 0.4 mg 11/28/19 08:30 Flomax - PO DAILY@0830 [facility] Umeclidinium/Vilanterol 1 puff 11/28/19 10:00 11/27/19 15:40 Anoro Ellipta 62.5-25 Mcg Inh IH 1 puff DAILY [facility] Administration A/P: 74 m h/o CAD/KS (s/p CABG 7 years ago), HTN, HLD, COPD (not on home O2), CORKY ( non-adherent to CPAP) and pubic fractures [facility], failure to take care of himself and L hip pain due to subacute and chronic compression fractures in L1/L2. Diastolic CHF with acute exacerbation BNP elevated, worsening LE pitting edema, ?non-compliance w/ diet and maybe even medications Restart Lasix IV to achieve euvolemia, reinforce salt and fluid restriction Repeat Echo also techincally difficult to read, but shows grossly normal LV function, trace TR Cardiology evaluation: Dr Villaseñor Chronic L1/L2 compression fractures w/ L leg and hip pain on extension pain control w/ Tylenol, PT evaluation Orthopedics consult: Dr Childers COPD not in acute exacerbation restart Anoro ellipta, duonebs PRN for SOB CORKY non-compliant w/ CPAP therapy restart CPAP overnight BPH endorses no difficulty urinating restart Flomax, monitor urine output Depression denies current SI/HI, mood appropriate restart SSRI ?Anxiety disorder Clonazepam 1mg TID PRN in med history, hold for now as this may increase delirium and fall risk HTn restart BP meds as tolerated HLD restart statin DVT ppx: Heparin SC Bowel regimen FEN: PO diet/hydration, daily chem, Na restricted diet
[2019-11-27] MEDS: TAMSULOSIN HCL 0.4 MG CAP PO SCH (17:10)
[2019-11-27] MEDS: GABAPENTIN 400 MG CAPSULE PO SCH (17:11)
[2019-11-27] MEDS: FUROSEMIDE 40 MG/4 ML INJECTABLE VIAL IVPUSH SCH (18:39)
[2019-11-27 19:51] VITALS: BMI 28.5
[2019-11-27] MEDS: ACETAMINOPHEN 325 MG TABLET (FP) PO PRN (19:54)
[2019-11-27] MEDS ORDERED: PNEUMOC 13-VAL CONJ-DIP CRM/PF 0.5 ML DISP.SYRIN IM ONE (20:00)
[2019-11-27] MEDS: DOCUSATE SODIUM 100 MG CAPSULE (FP) PO SCH ×2 (21:01→21:14)
[2019-11-27] MEDS: HEPARIN NA (PORCINE) 5,000 UNITS/ML 1ML VIAL SQ SCH (21:14)
[2019-11-27] MEDS: SENNOSIDES 8.6MG TABLET (FP) PO SCH (21:16)
[2019-11-27] MEDS ORDERED: LIDOCAINE PATCH REMOVAL MC SCH (22:00)
[2019-11-27] MEDS ORDERED: ATORVASTATIN CA 20 MG TABLET (FP) PO SCH (22:00)
[2019-11-27] MEDS ORDERED: MELATONIN 5 MG TABLETS PO ONE (23:16)
[2019-11-27] MEDS ORDERED: KETOROLAC TROMETHAMINE 30 MG/1 ML VIAL IM ONE (23:16)
[2019-11-28] MEDS: DOCUSATE SODIUM 100 MG CAPSULE (FP) PO SCH (05:00)
[2019-11-28] MEDS: HEPARIN NA (PORCINE) 5,000 UNITS/ML 1ML VIAL SQ SCH (05:00)
[2019-11-28] MEDS: ACETAMINOPHEN 325 MG TABLET (FP) PO PRN ×2 (05:00→10:47)
[2019-11-28 05:37] VITALS: TEMP 98.3
[2019-11-28 07:02] LABS: HEMATOCRIT 33.1 % (35.4-49); MCHC 33.2 g/dl (32.0-35.9); MEAN CELL VOLUME 96.4 fl (80-96); MEAN PLT VOLUME 8.5 fl (7.5-11.1); PLATELET COUNT 154 K/MM3 (134-434); RBC 3.43 M/mm3 (4.00-5.60); RDW 14.2 % (11.9-15.9); WHITE BLOOD COUNT 6.2 K/mm3 (4.0-10.0)
[2019-11-28 07:36] LABS: ANION GAP 9 MMOL/L (8-16); BLOOD UREA NITROGEN 15.7 mg/dL (7-18); CALCIUM 8.4 mg/dL (8.5-10.1); CHLORIDE 106 mmol/L (98-107); CO2 27 mmol/L (21-32); CREATININE 0.9 mg/dL (0.55-1.3); GLUCOSE,RANDOM 95 mg/dL (74-106); MAGNESIUM 1.7 mg/dL (1.8-2.4); POTASSIUM 3.4 mmol/L (3.5-5.1); SODIUM 141 mmol/L (136-145)
[2019-11-28] MEDS ORDERED: POTASSIUM CHLORIDE TABS 20 MEQ TABLET.ER (FP) PO ONE (08:00)
--- NOTE | 2019-11-28 08:24 | PN ---
Progress Note (short form) - Note Progress Note: NEUROSURGERY Chart reviewed Pt examined CT LS spine reviewed Boarding in ICU9 for tele h/o NC s/p CABG, HTN, HLD, COPD s/o mechanical fall 1 month ago c/o LBP and L> R hip pain. Was here 2-3 weeks ago and insisted on going home. Rx'd TLSO for L1 and L2 fx and not compliant. Pain mostly left leg, from left hip to left knee with numbness/tingling, but able to bear weight. Increasing difficulty in ambulating and has pain in his hip when he stands and walks. Denies weakness. No b/b dysfunction. PE: AF, VSS HEENT- NC/AT; Neck- supple; Cor- RR; Lungs- CTA B; Abd- benign; Ext- no sign of DVT CN- intact II-XII; Motor- 5/5 B LE; Sensation- intact LT CT LS spine- Osteopenia, spondylosis, chronic marked L1 fx with sup endplate retropulsion; subcaute L2 fx with retropulsion, not significantly changed from prior 10-30-2019 CT scan and 11-04-2019 MRI Subcaute-chronic L1 and L2 fx: non-surgical Asked pt to have TLSO brought to hospital and use when OOB Cont Neurontin 400 mg tid could be titrated up to 600 mg tid as needed DVT prophylaxis
[2019-11-28] MEDS ORDERED: MAGNESIUM OXIDE 400 MG TABLET (FP) PO ONE (08:38)
[2019-11-28] MEDS: FUROSEMIDE 40 MG/4 ML INJECTABLE VIAL IVPUSH SCH (09:25)
[2019-11-28] MEDS: GABAPENTIN 400 MG CAPSULE PO SCH (09:25)
[2019-11-28] MEDS: TAMSULOSIN HCL 0.4 MG CAP PO SCH (09:28)
[2019-11-28] MEDS ORDERED: PT OWN MED DRAWER 7, Y5N ONE (09:32)
--- NOTE | 2019-11-28 09:58 | PN ---
Progress Note, Physician History of Present Illness: Patient is a 74 year old man with a PMH of Dementia, CAD [place] s/p CABG, HTN, HLD and COPD, OSAS not adherent to cpap, pubic rammi fx s/p slip and fall given PT reports progressive swelling of legs (L>R), left leg pain, large ecchymosis over right medial thigh and scrotum. Denies using blood thinners and did not fall since. Took ibuprofen 600mg q 5hr for past 6d for pain. Also has constipation with abdominal swelling - last BM 4 days ago. Denies headache, nausea, vomiting, chest pain, SOB or urinary changes. Denies alcohol, tobacco or illicit drug use. - Current Medication List Current Medications: Active Medications Acetaminophen (Tylenol -) 650 mg PO Q6H PRN PRN Reason: PAIN LEVEL 1-5 Last Admin: 11/28/19 05:00 Dose: 650 mg Atorvastatin Calcium (Lipitor -) 20 mg PO HS [facility] Last Admin: 11/27/19 21:15 Dose: 20 mg Docusate Sodium (Colace -) 100 mg PO TID [facility] Last Admin: 11/28/19 05:00 Dose: 100 mg Fluvoxamine Maleate (Luvox -) 100 mg PO BID [facility] Last Admin: 11/28/19 09:33 Dose: 100 mg Furosemide (Lasix Injection -) 40 mg IVPUSH DAILY [facility] Last Admin: 11/28/19 09:25 Dose: 40 mg Gabapentin (Neurontin -) 400 mg PO DAILY [facility] Last Admin: 11/28/19 09:25 Dose: 400 mg Heparin Sodium (Porcine) (Heparin -) 5,000 unit SQ TID [facility] Last Admin: 11/28/19 05:00 Dose: 5,000 unit Lidocaine (Lidoderm Patch -) 1 patch TP DAILY [facility] Last Admin: 11/28/19 09:26 Dose: 1 patch Losartan Potassium (Cozaar -) 50 mg PO DAILY [facility] Last Admin: 11/27/19 17:11 Dose: 50 mg Magnesium Hydroxide (Milk Of Magnesia -) 30 ml PO DAILY PRN PRN Reason: CONSTIPATION Metoprolol Succinate (Toprol Xl -) 50 mg PO DAILY [facility] Last Admin: 11/28/19 09:29 Dose: 50 mg Miscellaneous (Lidoderm Patch Removal) 1 each MC DAILY@2200 [facility] Last Admin: 11/27/19 21:15 Dose: Not Given Senna (Senna -) 1 tab PO BID [facility] Last Admin: 11/27/19 21:16 Dose: 1 tab Tamsulosin HCl (Flomax -) 0.4 mg PO DAILY@0830 [facility] Last Admin: 11/28/19 09:28 Dose: 0.4 mg Umeclidinium/Vilanterol (Anoro Ellipta 62.5-25 Mcg Inh) 1 puff IH DAILY [facility] Last Admin: 11/27/19 15:40 Dose: 1 puff - Objective Vital Signs: Vital Signs Temperature 98.3 F 11/28/19 05:36 Pulse Rate 70 11/28/19 05:36 Respiratory Rate 19 11/28/19 05:36 Blood Pressure 124/94 11/28/19 05:36 O2 Sat by Pulse Oximetry (%) 94 L 11/27/19 12:00 Labs: CBC, BMP 11/28/19 05:30 11/28/19 05:30 INR, PTT INR 1.13 (0.83-1.09) H 11/27/19 05:00 Problem List - Problems (1) S/P CABG (coronary artery bypass graft) Code(s): Z95.1 - PRESENCE OF AORTOCORONARY BYPASS GRAFT (2) PVC (premature ventricular contraction) Code(s): I49.3 - VENTRICULAR PREMATURE DEPOLARIZATION (3) Hyperlipidemia Code(s): E78.5 - HYPERLIPIDEMIA, UNSPECIFIED Qualifiers: Hyperlipidemia type: pure hypercholesterolemia Qualified Code(s): E78.00 - Pure hypercholesterolemia, unspecified; E78.0 - Pure hypercholesterolemia (4) Hypertension Code(s): I10 - ESSENTIAL (PRIMARY) HYPERTENSION Qualifiers: Hypertension type: essential hypertension Qualified Code(s): I10 - Essential (primary) hypertension (5) CHF exacerbation Code(s): I50.9 - HEART FAILURE, UNSPECIFIED Qualifiers: Heart failure type: diastolic Qualified Code(s): I50.33 - Acute on chronic diastolic (congestive) heart failure (6) Left leg pain Code(s): M79.605 - PAIN IN LEFT LEG Assessment/Plan 11/27/2019 Echo: Normal LV and RV size and fxn, tr TR 01/10/2018 Stress echo: Mildly dilated, mild cLVH, normal LV fxn, 5 min 82 % MPHR 1. Acute on chronic diastolic heart failure 2. CAD s/p CABG post [place] (GARCIA->OM, SVG->PDA 01/19/12) 3. COPD 4. OSAS noncompliant on cpap 5. Hypertension 6. Hyperlipidemia 7. pubic fractures, subacute and chronic compression fractures in L1/L2 nonsurgical 8. Palpitations 9. 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 IV diuresis with monitor diuretic response, renal fxn and electrolytes 2. Repeat Echo also techincally difficult to read, but shows grossly normal LV function, trace TR 3. Continue ASA 81 qd, Lipitor 20 qd, losartan 50 qd, Toprol XL 50 qd, analgesia as needed 4. BD as needed, cpap nightly 5. Patient f/u with Dr. Wayne Gilbert [facility] for cardiology 6. TLSO brace, Neurontin per NSG
[2019-11-28] MEDS ORDERED: UMECLIDINIUM/VILANTEROL (ANORO) 62.5/25 MCG INHALER IH SCH (10:00)
[2019-11-28] MEDS ORDERED: LOSARTAN POTASSIUM 50 MG TABLET (FP) PO SCH (10:00)
[2019-11-28] MEDS ORDERED: LIDOCAINE 5% TOPICAL PATCH TP SCH (10:00)
[2019-11-28] MEDS: SENNOSIDES 8.6MG TABLET (FP) PO SCH (10:49)
[2019-11-28 12:00] VITALS: BP 132/78; PULSE 77
--- NOTE | 2019-11-29 19:54 | DS ---
Physical Exam: 74 M h/o CAD/MD (s/p CABG 7 years ago), HTN, HLD, COPD (not on home O2), BPH, depression, CORKY (non-adherent to CPAP) and pubic fractures with back brace presents for lower extremity swelling and intermittent L leg/hip pain. Patient endorses having trouble "getting around" the house due to L hip and leg pain when he tries to "reach for something", denies recurrent falls. But was admitted few weeks back for R sup ramus fx, treated w. conservative measures. Since discharge patient hasn't followed up with any doctor, now taking care of himself alone due to being in the hospital, finds it harder to take care for himself due to no help. Patient was admitted for mild CHFE and LBP. Patient evaluated by Cardiology service who recommended medication compliance, fluid restriction and follow up with outside watch electrician at [facility], Neurosurgery service evaluated patient who recommended uptitration of Gabapentin as needed and back brace use when ambulating. Patient otherwise stable for discharge home , with the care of his daughter in law who is accompanying patient during discharge. PE VSS GA comfortable, AAox3, sitting upright, NAD HEENT NC/AT, EOMI, neck supple, trachea midline Chest good air entry b/l, faint bibasilar crackles CVS S1, S2+, RRR, no m/r/g Abd Soft, NT, ND, BS+, no guarding Ext 2+ pitting edema LE b/l improved from prior, no calf tenderness, ambulates w /o assistance Home Medications Medication Instructions Recorded Fluvoxamine Maleate [Luvox -] 100 mg PO BID 01/02/13 Metoprolol Succinate [Toprol XL -] 50 mg PO DAILY 01/02/13 Losartan Potassium [Cozaar -] 50 mg PO DAILY #0 01/06/13 Atorvastatin Ca [Lipitor] 20 mg PO HS 11/01/19 Clonazepam 1 mg PO TID PRN 11/01/19 Gabapentin 400 mg PO DAILY 11/01/19 Umeclidinium Brm/Vilanterol Tr 1 each IH DAILY 11/01/19 [Anoro Ellipta 62.5-25 Mcg INH] Acetaminophen [Tylenol .Regular 650 mg PO Q6H PRN tablet 11/05/19 Strength -] Docusate Sodium [Colace -] 100 mg PO TID #0 capsule 11/05/19 Tamsulosin HCl [Flomax -] 0.4 mg PO DAILY@0830 #0 cap.er.24h 11/05/19 Cholecalciferol (Vitamin D3) 1,000 unit PO DAILY #30 tablet 11/28/19 [Vitamin D3] A/P: 74 m h/o CAD/MD (s/p CABG 7 years ago), HTN, HLD, COPD (not on home O2), CORKY ( non-adherent to CPAP) and pubic fractures admitted CHFE and LBP, now improved and stable for DC. Diastolic CHF with acute exacerbation improved CHF with 1 dose of IV lasix, achieved euvolemia, reinforced salt and fluid restriction Patient taken off Lasix by outside watch electrician, has a follow up appointment with him in 1 week, advised to follow up with him regarding further Lasix regimen Repeat Echo also techincally difficult to read, but shows grossly normal LV function, trace TR Cardiology evaluation: Dr Villaseñor Chronic L1/L2 compression fractures w/ L leg and hip pain on extension pain control w/ Tylenol Orthopedics consult: Dr Childers recommending use of back brace when ambulating and increasing Gabapentin to 600mg TID PRN for neuropathic pain COPD not in acute exacerbation cont home Anoro ellipta, Albuterol PRN for SOB CORKY non-compliant w/ CPAP therapy reinforced compliance w/ CPAP therapy BPH endorses no difficulty urinating cont. home Flomax Depression denies current SI/HI, mood appropriate restart SSRI For Anxiety disorder patient's psychiatrist has him on clonazepam 1mg TID PRN, as per patient and his daughter in law he has been on this medication "for years ", patient endorses taking it 1-2 times per week, had extensive conversation with patient and his daughter in law that this medication may increase delirium and fall risk and to consider talking to his psychiatrist to titrate this medication off. Patient endorses he takes it sparingly, is aware of fall risk, and needs to stay on medication despite its risks for fall, confusion, delirium and memory loss. HTn continue home BP meds HLD Continue statin Disposition: Patient to be discharged home with assistance of daughter in law who agrees to help take care of him. As per daughter in law he has refused VNS many times, endorses he doesn't want a nurse helping him. Patient however has a family friend who also serves as his 's [employer] who still assists him at home despite his being in SNF facility. Advised to patient to keep his appointment with his watch electrician at [facility], and follow up with his psychiatrist and PCP at [facility]. Discharge medications: Continue home medications as prescribed, patient aware he can use Gabapentin up to 600mg TID as needed for his leg pain. Advised patient to refrain from drinking alcohol as it may increase fall risk and affect breathing and cognition. Patient understands. Minutes to complete discharge: 40 Discharge Summary Problems reviewed: Yes Reason For Visit: ACUTE ON CHRONIC CHF,PAIN LFT LOWER EXTREMITY Condition: Good - Instructions Diet, Activity, Other Instructions: You were admitted to the hospital for a mild acute exacerbation of heart failure and left hip and left leg pain. You may return back to your regular activity as tolerated. Please take your medications as prescribed and avoid use of alcohol. Please follow up with your primary care doctor in 1 week. If you experience, dizziness, a fall, shortness of breath, chest pain, abdominal pain, syncope go to the ED immediately. Disposition: HOME - Home Medications Comprehensive Discharge Medication List: Ambulatory Orders Fluvoxamine Maleate [Luvox -] 100 mg PO BID 01/02/13 Metoprolol Succinate [Toprol XL -] 50 mg PO DAILY 01/02/13 Losartan Potassium [Cozaar -] 50 mg PO DAILY #0 01/06/13 Atorvastatin Ca [Lipitor] 20 mg PO HS 11/01/19 Clonazepam 1 mg PO TID PRN 11/01/19 Gabapentin 400 mg PO DAILY 11/01/19 Umeclidinium Brm/Vilanterol Tr [Anoro Ellipta 62.5-25 Mcg INH] 1 each IH DAILY 11/01/19 Acetaminophen [Tylenol .Regular Strength -] 650 mg PO Q6H PRN tablet 11/05/19 Docusate Sodium [Colace -] 100 mg PO TID #0 capsule 11/05/19 Tamsulosin HCl [Flomax -] 0.4 mg PO DAILY@0830 #0 cap.er.24h 11/05/19 Cholecalciferol (Vitamin D3) [Vitamin D3] 1,000 unit PO DAILY #30 tablet This patient is new to me today: No Emergency Visit: Yes ED Registration Date: 11/27/19 Care time: The patient presented to the Emergency Department on the above date and was hospitalized for further evaluation of their emergent condition. Critical Care patient: No - Discharge Referral [facility]erred to [facility] No
== END 2019-11-28 12:13 | disposition home or self-care (01) | DRG 293 ==
LOC: JER 04:13 → JERBED 07:12 → J2W 19:06
DX: I11.0 Hypertensive heart disease with heart failure (principal); I50.33 Acute on chronic diastolic (congestive) heart failure; J44.9 Chronic obstructive pulmonary disease, unspecified; E78.00 Pure hypercholesterolemia, unspecified; I45.10 Unspecified right bundle-branch block; I25.10 Atherosclerotic heart disease of native coronary artery without angina pectoris; G47.33 Obstructive sleep apnea (adult) (pediatric); I25.2 Old myocardial infarction; M54.5 Low back pain; I71.4 Abdominal aortic aneurysm, without rupture; I49.3 Ventricular premature depolarization; R00.2 Palpitations; N40.0 Benign prostatic hyperplasia without lower urinary tract symptoms; F32.9 Major depressive disorder, single episode, unspecified; S32.028G Other fracture of second lumbar vertebra, subsequent encounter for fracture with delayed healing; S32.018G Other fracture of first lumbar vertebra, subsequent encounter for fracture with delayed healing; S32.591D Other specified fracture of right pubis, subsequent encounter for fracture with routine healing; Z95.1 Presence of aortocoronary bypass graft
CPT/HCPCS: 36415; 71046-TC-FY; 72131-TC; 72192-TC; 80048; 80053; 83735; 83880; 84100; 84484; 85025; 85027; 85610; 85730; 93005; 93010; 93306-TC; 93970-TC; 99283-25; J0131; J1644